=== PATIENT | male | born 1945 | race Caucasian/White ===

== ENCOUNTER 2018-05-26 03:30 | Emergency (ER) | payer MEDICARE, OTHER, SELFPAY ==
[2018-05-26 03:30] VITALS: BP 107/57; PULSE 76; RESP 18; TEMP 38.3; O2SAT 95; BMI 28.0
--- NOTE | 2018-05-26 03:50 | ED.LOWEXIN ---
HPI - Extremity Injury (Lower) General Chief Complaint: Extremity Injury, Lower Stated Complaint: Bleeding at dressing Time Seen by Provider: 05/26/18 03:49 Source: patient and EMS Mode of arrival: EMS Limitations: no limitations History of Present Illness HPI Narrative: Patient is a 72-year-old male who presents with left his knee bleeding. He had a total knee arthroplasty is 3 days ago he was discharged the 2 days ago. Yesterday he started his exercises. this evening he noticed that there was bleeding at the incision site and there was her very large blood clot which drip from the bandage. He does have some postoperative swelling. He is noted to have low-grade fever of 100.9. He denies knowing of any fever before this. He was feeling fine earlier. Related Data Home Medications Medication Instructions Recorded Confirmed [flaxseed oil] #0 05/05/16 ascorbic acid (vitamin C) 500 mg PO QDAY #0 05/05/16 cholecalciferol (vitamin D3) 1,000 unit PO QDAY #0 05/05/16 [Vitamin D3] ginkgo biloba 120 mg PO #0 05/05/16 multivitamin [Multiple Vitamins] 1 tab PO QDAY #0 05/05/16 omega 9-ufo-zrw-fish oil [Fish Oil] 1,000 mg PO #0 05/05/16 Allergies Allergy/AdvReac Type Severity Reaction Status Date / Time azithromycin [From ZITHROMAX] Allergy Unknown Verified 05/26/18 04:03 oxycodone [OXYCODONE] Allergy Unknown RASH Verified 05/26/18 04:03 Sulfa (Sulfonamide Allergy Unknown Verified 05/26/18 04:03 Antibiotics) [SULFA (SULFONAMIDE ANTIBIOTICS)] Review of Systems Review of Systems ROS Unobtainable: All systems reviewed & are unremarkable except as noted in HPI and below Constitutional Denies body ache(s), Denies chills and Reports fever(s) Eyes Denies change in vision, Denies eye discharge, Denies irritation and Denies loss of vision Cardiovascular Denies chest pain, Denies irregular heart rhythm, Denies lightheadedness, Denies palpitations, Denies dyspnea, Denies dyspnea on exertion and Denies orthopnea Respiratory Denies cough, Denies dyspnea, Denies dyspnea on exertion and Denies wheezing Gastrointestinal Gastrointestinal: Denies abdominal pain, Denies change in bowel habits, Denies diarrhea, Denies nausea and Denies vomiting Genitourinary Denies hematuria, Denies flank pain, Denies urinary incontinence and Denies urinary urgency Musculoskeletal Denies back pain, Denies muscle weakness, Denies numbness and Denies tingling Integumentary/Breasts Denies pruritus, Denies erythema, Denies rash and Denies wounds Neurologic Denies loss of vision, Denies numbness and Denies tingling Endocrine Denies palpitations Allergic/Immunologic Denies wheezing [facility] Medical History Hypertension (Chronic) Surgical History H/O total knee replacement (Acute) Social History Smoking Status: Never smoker Social History Smoking Status: Never smoker Exam Initial Vital Signs Initial Vital Signs: Vital Signs Temperature 100.9 F H 05/26/18 03:30 Pulse Rate 76 05/26/18 03:30 Respiratory Rate 18 05/26/18 03:30 Blood Pressure 107/57 L 05/26/18 03:30 Pulse Oximetry 95 05/26/18 03:30 GENERAL: Well-appearing, well-nourished and in no acute distress. HEENT: Head atraumatic,EOMI, pupils reactive CARDIOVASCULAR: Regular rate and rhythm without murmurs, rubs or gallops. RESPIRATORY: Breath sounds equal bilaterally, no wheezes rales or rhonchi. ABDOMEN: Soft, nontender. Normoactive bowel sounds all 4 quadrants. No guarding or rebound. EXTREMITIES: Normal range of motion, no clubbing or edema. Neurovascularly intact Left knee: Postoperative changes noted some swelling. No erythema. Incision site is clean and dry small and at the most distal end of the incision there is some oozing. Is easily controlled with pressure. NEUROLOGICAL: Alert and oriented x4.Normal gait and speech. Cranial nerves II through XII grossly intact. SKIN: Warm, dry, no laceration, no petechiae, no rashes or lesions. Course Orders Ordered: Discontinued Medications Sodium Chloride (Normal Saline 0.9%) 1,000 mls @ 1,000 mls/hr IV BOLUS ONE Stop: 05/26/18 04:51 Last Infusion: 05/26/18 05:00 Dose: 1,000 mls/hr Admin: 05/26/18 04:00 Dose: 1,000 mls/hr Vital Signs - 8 hr 05/26/18 03:30 Temperature 100.9 F H Pulse Rate 76 Respiratory Rate 18 Blood Pressure 107/57 L Pulse Oximetry 95 MDM - Extremity Injury (Lower) Lab Data Attestation: I reviewed the patient's lab results. Result diagrams: 05/26/18 04:00 05/26/18 04:00 Lab Results 05/26/18 05/26/18 05/26/18 Range/Units 04:00 04:00 04:00 WBC 7.6 (4.5-11.0) X10^3/uL RBC 3.74 L (4.5-5.9) X10^6/uL Hgb 12.5 L (13.5-17.5) g/dL Hct 36.7 L (41-53) % MCV 98.0 (80-100) fL MCH 33.4 (26-34) PG MCHC 34.1 (30-36) % RDW 13.1 (11.6-14.8) % Plt Count 123 L (150-400) X10^3/uL Neut % (Auto) 81.6 H (50-75) % Lymph % (Auto) 7.3 L (25-40) % [place] % (Auto) 10.6 (3-14) % Eos % (Auto) 0.3 L (2-4) % Baso % (Auto) 0.2 (0-2) % Neut # (Auto) 6200 (6402-6136) /uL Lymph # (Auto) 600 L (5608-7183) /uL [place] # (Auto) 800 (0-900) /uL Eos # (Auto) 0 (0-450) /uL Baso # (Auto) 0 (0-100) /uL Sodium 134 L (137-145) mmol/L Potassium 4.0 (3.4-5.1) mmol/L Chloride 98 (98-107) mmol/L Carbon Dioxide 30 (22-32) mmol/L BUN 14 (9-20) mg/dL Creatinine 0.90 (0.66-1.25) mg/dL Estimated GFR > 60.0 (>60) mL/min BUN/Creatinine Ratio 15.6 (6-22) Glucose 166 H (80-110) mg/dL Lactate 1.0 (0.7-2.1) mmol/L Calcium 8.5 (8.4-10.2) mg/dL Urine Color Urine Appearance Urine pH (4.5-8.0) Ur Specific [place] (1.000-1.035) Urine Protein (Negative) Urine Glucose (UA) (Negative) g/dL Urine Ketones (NEGATIVE) Urine Occult Blood (Negative) Urine Nitrate (Negative) Urine Bilirubin (NEGATIVE) Urine Urobilinogen (0.2) E.U./dL Ur Leukocyte Esterase (NEGATIVE) Urine RBC (0-5/HPF) Urine WBC (0-5/HPF) Ur Squamous Epith Cells Urine Bacteria (None) Urine Mucus (Negative) Ur Culture Indicated? 05/26/18 Range/Units 05:15 WBC (4.5-11.0) X10^3/uL RBC (4.5-5.9) X10^6/uL Hgb (13.5-17.5) g/dL Hct (41-53) % MCV (80-100) fL MCH (26-34) PG MCHC (30-36) % RDW (11.6-14.8) % Plt Count (150-400) X10^3/uL Neut % (Auto) (50-75) % Lymph % (Auto) (25-40) % [place] % (Auto) (3-14) % Eos % (Auto) (2-4) % Baso % (Auto) (0-2) % Neut # (Auto) (9790-1135) /uL Lymph # (Auto) (6002-4167) /uL [place] # (Auto) (0-900) /uL Eos # (Auto) (0-450) /uL Baso # (Auto) (0-100) /uL Sodium (137-145) mmol/L Potassium (3.4-5.1) mmol/L Chloride (98-107) mmol/L Carbon Dioxide (22-32) mmol/L BUN (9-20) mg/dL Creatinine (0.66-1.25) mg/dL Estimated GFR (>60) mL/min BUN/Creatinine Ratio (6-22) Glucose (80-110) mg/dL Lactate (0.7-2.1) mmol/L Calcium (8.4-10.2) mg/dL Urine Color Yaritza Urine Appearance Clear Urine pH 5.5 (4.5-8.0) Ur Specific [place] 1.025 (1.000-1.035) Urine Protein Trace H (Negative) Urine Glucose (UA) Negative (Negative) g/dL Urine Ketones Trace H (NEGATIVE) Urine Occult Blood Negative (Negative) Urine Nitrate Negative (Negative) Urine Bilirubin Negative (NEGATIVE) Urine Urobilinogen 0.2 (0.2) E.U./dL Ur Leukocyte Esterase Negative (NEGATIVE) Urine RBC 0-1/hpf (0-5/HPF) Urine WBC None seen (0-5/HPF) Ur Squamous Epith Cells 0-1 /hpf Urine Bacteria None seen (None) Urine Mucus 2+ H (Negative) Ur Culture Indicated? Cult not indicated MDM Narrative Medical decision making narrative: bleeding at incision it is oozing which is controlled his with pressure. Initially Surgicel was placed with gauze and Coban. Left for about 30 min new bandage as needed to be placed soaked gauze and Surgicel were removed. Bleeding started again. Coban was placed. This seemed to control bleeding. Coban is left in place. 5:40 a.m I spoke with the PA on-call Sumit, to [phone] of for doctor Apodaca. He has been made aware of fever and workup including negative DVT study, also aware of oozing at incision site. Discharge Plan Departure Patient Disposition: Home Clinical Impression: Postoperative bleeding from incision, Postoperative fever Discharge Date/Time: 05/26/18 07:14 Interventions: ED Discharge Assessment Last Done: 05/26/18 07:11 Instructions: DI for Post-Surgical Bleeding Activity Restrictions/Additional Instructions: *You have been diagnosed with postoperative fever and incisional bleeding *What to do: Keep Coban in pressure on site of bleeding for the next few hours. He may remove the Coban but do not remove the dressing. If the bleeding should start again apply pressure and hold for 30 min at a time if bleeding is not stopping then return to ED. At this time no indication for antibiotics for fever. It needs to be closely monitored with all your surgeon. No indication of blood clot and blood work is reassuring. *Continue to take medications as directed *Follow up with your primary care provider in 2-3 days, call your surgeon today to schedule appointment. PA curator of collections is aware *Return to ER if you should have bleeding that is not controlled with pressure, persistent fever, increasing redness or any new, worsening or concerning symptoms Prescriptions: No Action multivitamin [Multiple Vitamins] 1 EACH tablet 1 tab PO QDAY Qty: 0 RF: 0 ginkgo biloba 120 MG tablet 120 mg PO Qty: 0 RF: 0 omega 9-yax-tyb-fish oil [Fish Oil] 1,000 MG capsule 1,000 mg PO Qty: 0 RF: 0 [flaxseed oil] Qty: 0 RF: 0 ascorbic acid (vitamin C) 500 MG tablet 500 mg PO QDAY Qty: 0 RF: 0 cholecalciferol (vitamin D3) [Vitamin D3] 1,000 UNIT tablet 1,000 unit PO QDAY Qty: 0 RF: 0
--- NOTE | 2018-05-26 03:52 | DI.US.S_ITS ---
PROCEDURE: US PERIPH VENOUS LOW EXTREM LT INDICATIONS: EDEMA 4 DAYS POST LEFT KNEEE REPLACEMENT TECHNIQUE: Real-time imaging, as well as color and pulse Doppler interrogation, were performed of the lower extremity deep veins from the inguinal ligament to the popliteal fossa. COMPARISON: None. FINDINGS: The deep veins are normally compressible, and free of intraluminal thrombus. Color and pulse Doppler demonstrate normal phasic intraluminal flow. There is normal augmentation response to distal compression maneuver. Calf veins were not evaluated. IMPRESSION: No evidence of deep vein thrombosis involving the left lower extremity. Dictated by: Catrachita Gibson MD, PhD on 05/26/2018 at 7:19 Approved by: Catrachita Gibson MD, PhD on 05/26/2018 at 7:20
[2018-05-26] MEDS: SODIUM CHLORIDE 0.9% 1,000 ML 1000 ML IV (04:00)
--- NOTE | 2018-05-26 04:00 | PC.NURSE ---
Pt s/p left knee surgery on 05/23/17, states went to bathroom and knee bleeding beyond aquacell bandage applied. Bandage removed, surgical site bleeding at base of incision, Dr in room applied surgicel and coban to knee temporarily then replaced with new aquacell bandage to knee with bleeding controlled. Pt denies new or increasing pain to site. States was doing exercises earlier in day and going up and down stairs in 3 story home.
[2018-05-26 04:21] LABS: Add Manual Diff / Slide Review NO; Basophils Absolute Auto 0 /uL (0-100); Basophils Percent Auto 0.2 % (0-2); Eosinophils Absolute Auto 0 /uL (0-450); Eosinophils Percent Auto 0.3 % (2-4); Hematocrit 36.7 % (41-53); Hemoglobin 12.5 g/dL (13.5-17.5); Lymphocytes Absolute Auto 600 /uL (1100-4500); Lymphocytes Percent Auto 7.3 % (25-40); Mean Corpuscular HGB Conc 34.1 % (30-36); Mean Corpuscular Hemoglobin 33.4 PG (26-34); Monocytes Absolute Auto 800 /uL (0-900); Monocytes Percent Auto 10.6 % (3-14); Neutrophils Absolute Auto 6200 /uL (1500-7000); Neutrophils Percent Auto 81.6 % (50-75); Platelet Count 123 X10^3/uL (150-400); Red Blood Cell Count 3.74 X10^6/uL (4.5-5.9); Red Cell Distribution Width 13.1 % (11.6-14.8); White Blood Cell Count 7.6 X10^3/uL (4.5-11.0)
[2018-05-26 04:25] LABS: BUN Creatinine Ratio 15.6 (6-22); Blood Urea Nitrogen 14 mg/dL (9-20); Calcium 8.5 mg/dL (8.4-10.2); Carbon Dioxide 30 mmol/L (22-32); Chloride 98 mmol/L (98-107); Estimated Glomerular Filt Rate > 60.0 mL/min (>60); Glucose 166 mg/dL (80-110); HEMOLYSIS < 15 (0-50); Sodium 134 mmol/L (137-145)
--- NOTE | 2018-05-26 04:54 | ED_ITS ---
HPI - Extremity Injury (Lower) General Chief Complaint: Extremity Injury, Lower Stated Complaint: Bleeding at dressing Time Seen by Provider: 05/26/18 03:49 Source: patient and EMS Mode of arrival: EMS Limitations: no limitations History of Present Illness HPI Narrative: Patient is a 72-year-old male who presents with left his knee bleeding. He had a total knee arthroplasty is 3 days ago he was discharged the 2 days ago. Yesterday he started his exercises. this evening he noticed that there was bleeding at the incision site and there was her very large blood clot which drip from the bandage. He does have some postoperative swelling. He is noted to have low-grade fever of 100.9. He denies knowing of any fever before this. He was feeling fine earlier. Related Data Home Medications Medication Instructions Recorded Confirmed [flaxseed oil] #0 05/05/16 ascorbic acid (vitamin C) 500 mg PO QDAY #0 05/05/16 cholecalciferol (vitamin D3) 1,000 unit PO QDAY #0 05/05/16 [Vitamin D3] ginkgo biloba 120 mg PO #0 05/05/16 multivitamin [Multiple Vitamins] 1 tab PO QDAY #0 05/05/16 omega 5-esa-ifi-fish oil [Fish Oil] 1,000 mg PO #0 05/05/16 Allergies Allergy/AdvReac Type Severity Reaction Status Date / Time azithromycin [From ZITHROMAX] Allergy Unknown Verified 05/26/18 04:03 oxycodone [OXYCODONE] Allergy Unknown RASH Verified 05/26/18 04:03 Sulfa (Sulfonamide Allergy Unknown Verified 05/26/18 04:03 Antibiotics) [SULFA (SULFONAMIDE ANTIBIOTICS)] Review of Systems Review of Systems ROS Unobtainable: All systems reviewed & are unremarkable except as noted in HPI and below Constitutional Denies body ache(s), Denies chills and Reports fever(s) Eyes Denies change in vision, Denies eye discharge, Denies irritation and Denies loss of vision Cardiovascular Denies chest pain, Denies irregular heart rhythm, Denies lightheadedness, Denies palpitations, Denies dyspnea, Denies dyspnea on exertion and Denies orthopnea Respiratory Denies cough, Denies dyspnea, Denies dyspnea on exertion and Denies wheezing Gastrointestinal Gastrointestinal: Denies abdominal pain, Denies change in bowel habits, Denies diarrhea, Denies nausea and Denies vomiting Genitourinary Denies hematuria, Denies flank pain, Denies urinary incontinence and Denies urinary urgency Musculoskeletal Denies back pain, Denies muscle weakness, Denies numbness and Denies tingling Integumentary/Breasts Denies pruritus, Denies erythema, Denies rash and Denies wounds Neurologic Denies loss of vision, Denies numbness and Denies tingling Endocrine Denies palpitations Allergic/Immunologic Denies wheezing [facility] Medical History Hypertension (Chronic) Surgical History H/O total knee replacement (Acute) Social History Smoking Status: Never smoker Social History Smoking Status: Never smoker Exam Initial Vital Signs Initial Vital Signs: Vital Signs Temperature 100.9 F H 05/26/18 03:30 Pulse Rate 76 05/26/18 03:30 Respiratory Rate 18 05/26/18 03:30 Blood Pressure 107/57 L 05/26/18 03:30 Pulse Oximetry 95 05/26/18 03:30 GENERAL: Well-appearing, well-nourished and in no acute distress. HEENT: Head atraumatic,EOMI, pupils reactive CARDIOVASCULAR: Regular rate and rhythm without murmurs, rubs or gallops. RESPIRATORY: Breath sounds equal bilaterally, no wheezes rales or rhonchi. ABDOMEN: Soft, nontender. Normoactive bowel sounds all 4 quadrants. No guarding or rebound. EXTREMITIES: Normal range of motion, no clubbing or edema. Neurovascularly intact Left knee: Postoperative changes noted some swelling. No erythema. Incision site is clean and dry small and at the most distal end of the incision there is some oozing. Is easily controlled with pressure. NEUROLOGICAL: Alert and oriented x4.Normal gait and speech. Cranial nerves II through XII grossly intact. SKIN: Warm, dry, no laceration, no petechiae, no rashes or lesions. Course Orders Ordered: Discontinued Medications Sodium Chloride (Normal Saline 0.9%) 1,000 mls @ 1,000 mls/hr IV BOLUS ONE Stop: 05/26/18 04:51 Last Infusion: 05/26/18 05:00 Dose: 1,000 mls/hr Admin: 05/26/18 04:00 Dose: 1,000 mls/hr Vital Signs - 8 hr 05/26/18 03:30 Temperature 100.9 F H Pulse Rate 76 Respiratory Rate 18 Blood Pressure 107/57 L Pulse Oximetry 95 MDM - Extremity Injury (Lower) Lab Data Attestation: I reviewed the patient's lab results. Result diagrams: 05/26/18 04:00 05/26/18 04:00 Lab Results 05/26/18 05/26/18 05/26/18 Range/Units 04:00 04:00 04:00 WBC 7.6 (4.5-11.0) X10^3/uL RBC 3.74 L (4.5-5.9) X10^6/uL Hgb 12.5 L (13.5-17.5) g/dL Hct 36.7 L (41-53) % MCV 98.0 (80-100) fL MCH 33.4 (26-34) PG MCHC 34.1 (30-36) % RDW 13.1 (11.6-14.8) % Plt Count 123 L (150-400) X10^3/uL Neut % (Auto) 81.6 H (50-75) % Lymph % (Auto) 7.3 L (25-40) % [place] % (Auto) 10.6 (3-14) % Eos % (Auto) 0.3 L (2-4) % Baso % (Auto) 0.2 (0-2) % Neut # (Auto) 6200 (2367-9782) /uL Lymph # (Auto) 600 L (6843-9641) /uL [place] # (Auto) 800 (0-900) /uL Eos # (Auto) 0 (0-450) /uL Baso # (Auto) 0 (0-100) /uL Sodium 134 L (137-145) mmol/L Potassium 4.0 (3.4-5.1) mmol/L Chloride 98 (98-107) mmol/L Carbon Dioxide 30 (22-32) mmol/L BUN 14 (9-20) mg/dL Creatinine 0.90 (0.66-1.25) mg/dL Estimated GFR > 60.0 (>60) mL/min BUN/Creatinine Ratio 15.6 (6-22) Glucose 166 H (80-110) mg/dL Lactate 1.0 (0.7-2.1) mmol/L Calcium 8.5 (8.4-10.2) mg/dL Urine Color Urine Appearance Urine pH (4.5-8.0) Ur Specific [place] (1.000-1.035) Urine Protein (Negative) Urine Glucose (UA) (Negative) g/dL Urine Ketones (NEGATIVE) Urine Occult Blood (Negative) Urine Nitrate (Negative) Urine Bilirubin (NEGATIVE) Urine Urobilinogen (0.2) E.U./dL Ur Leukocyte Esterase (NEGATIVE) Urine RBC (0-5/HPF) Urine WBC (0-5/HPF) Ur Squamous Epith Cells Urine Bacteria (None) Urine Mucus (Negative) Ur Culture Indicated? 05/26/18 Range/Units 05:15 WBC (4.5-11.0) X10^3/uL RBC (4.5-5.9) X10^6/uL Hgb (13.5-17.5) g/dL Hct (41-53) % MCV (80-100) fL MCH (26-34) PG MCHC (30-36) % RDW (11.6-14.8) % Plt Count (150-400) X10^3/uL Neut % (Auto) (50-75) % Lymph % (Auto) (25-40) % [place] % (Auto) (3-14) % Eos % (Auto) (2-4) % Baso % (Auto) (0-2) % Neut # (Auto) (4872-4113) /uL Lymph # (Auto) (3865-6146) /uL [place] # (Auto) (0-900) /uL Eos # (Auto) (0-450) /uL Baso # (Auto) (0-100) /uL Sodium (137-145) mmol/L Potassium (3.4-5.1) mmol/L Chloride (98-107) mmol/L Carbon Dioxide (22-32) mmol/L BUN (9-20) mg/dL Creatinine (0.66-1.25) mg/dL Estimated GFR (>60) mL/min BUN/Creatinine Ratio (6-22) Glucose (80-110) mg/dL Lactate (0.7-2.1) mmol/L Calcium (8.4-10.2) mg/dL Urine Color Yaritza Urine Appearance Clear Urine pH 5.5 (4.5-8.0) Ur Specific [place] 1.025 (1.000-1.035) Urine Protein Trace H (Negative) Urine Glucose (UA) Negative (Negative) g/dL Urine Ketones Trace H (NEGATIVE) Urine Occult Blood Negative (Negative) Urine Nitrate Negative (Negative) Urine Bilirubin Negative (NEGATIVE) Urine Urobilinogen 0.2 (0.2) E.U./dL Ur Leukocyte Esterase Negative (NEGATIVE) Urine RBC 0-1/hpf (0-5/HPF) Urine WBC None seen (0-5/HPF) Ur Squamous Epith Cells 0-1 /hpf Urine Bacteria None seen (None) Urine Mucus 2+ H (Negative) Ur Culture Indicated? Cult not indicated MDM Narrative Medical decision making narrative: bleeding at incision it is oozing which is controlled his with pressure. Initially Surgicel was placed with gauze and Coban. Left for about 30 min new bandage as needed to be placed soaked gauze and Surgicel were removed. Bleeding started again. Coban was placed. This seemed to control bleeding. Coban is left in place. 5:40 a.m I spoke with the PA on-call Sumit to [phone] of for doctor Apodaca. He has been made aware of fever and workup including negative DVT study, also aware of oozing at incision site. Discharge Plan Departure Patient Disposition: Home Clinical Impression: Postoperative bleeding from incision, Postoperative fever Discharge Date/Time: 05/26/18 07:14 Interventions: ED Discharge Assessment Last Done: 05/26/18 07:11 Instructions: DI for Post-Surgical Bleeding Activity Restrictions/Additional Instructions: *You have been diagnosed with postoperative fever and incisional bleeding *What to do: Keep Coban in pressure on site of bleeding for the next few hours. He may remove the Coban but do not remove the dressing. If the bleeding should start again apply pressure and hold for 30 min at a time if bleeding is not sto pping then return to ED. At this time no indication for antibiotics for fever. It needs to be closely monitored with all your surgeon. No indication of blood clot and blood work is reassuring. *Continue to take medications as directed *Follow up with your primary care provider in 2-3 days, call your surgeon today to schedule appointment. PA pedodontist is aware *Return to ER if you should have bleeding that is not controlled with pressure, persistent fever, increasing redness or any new, worsening or concerning symptoms Prescriptions: No Action multivitamin [Multiple Vitamins] 1 EACH tablet 1 tab PO QDAY Qty: 0 RF: 0 ginkgo biloba 120 MG tablet 120 mg PO Qty: 0 RF: 0 omega 8-mbg-nzk-fish oil [Fish Oil] 1,000 MG capsule 1,000 mg PO Qty: 0 RF: 0 [flaxseed oil] Qty: 0 RF: 0 ascorbic acid (vitamin C) 500 MG tablet 500 mg PO QDAY Qty: 0 RF: 0 cholecalciferol (vitamin D3) [Vitamin D3] 1,000 UNIT tablet 1,000 unit PO QDAY Qty: 0 RF: 0
[2018-05-26 05:58] LABS: Bacteria Urine None Seen; WBC Urine None Seen (0-5/HPF)
--- NOTE | 2018-05-26 07:00 | PC.NURSE ---
and RN updated pt on wait for urine still pending in lab due to extended wait time for results per lab to come back to ER. Dr Hartman spoke with computer laboratory technician to get a status of pending urine and gave pt option to DC and pt would be notified of results in which pt declined and chose to wait for urine results prior to DC.
[2018-05-26 07:03] LABS: Appearance Urine UA CLEAR; Bilirubin Urine UA NEGATIVE (NEGATIVE); Glucose Urine UA NEGATIVE (Negative); Ketones Urine UA TRACE (NEGATIVE); Leukocyte Esterase Urine UA NEGATIVE (NEGATIVE); Nitrite Urine UA NEGATIVE (Negative); Occult Blood Urine UA NEGATIVE (Negative); Protein Urine UA TRACE (Negative); Specific Gravity Urine UA 1.025 (1.000-1.035); Urobilinogen Urine UA 0.2 E.U./dL (0.2); pH Urine UA 5.5 (4.5-8.0)
[2018-05-26 07:05] LABS: Color Urine UA AMBER
[2018-05-26 07:11] VITALS: BP 112/66; PULSE 72; RESP 14; TEMP 38.1; O2SAT 95
[2018-05-26 07:11] LABS: Culture Indicated Urine Cult Not Indicated; Mucus Urine 2+ (Negative); RBC Urine 0-1/HPF (0-5/HPF); Squamous Epithelial Cell Urine 0-1 /HPF
== END 2018-05-26 07:14 | disposition home or self-care (01) ==
PROVIDERS: Emergency Provider Emergency Medicine
DX: T14.8XXA Other injury of unspecified body region, initial encounter (principal); R50.82 Postprocedural fever
CPT/HCPCS: 36415; 36591; 80048; 81001; 83605; 85025; 87040; 93971; 96360; 99283; 99284

== ENCOUNTER 2019-02-15 04:03 | Emergency (ER) | payer MEDICARE, OTHER, SELFPAY ==
[2019-02-15 04:17] VITALS: BP 177/85; PULSE 80; RESP 20; O2SAT 99
--- NOTE | 2019-02-15 04:24 | DI.CT.S_ITS ---
PROCEDURE: CT HEAD/BRAIN WO CON INDICATIONS: Hypertension, numbness of left arm and left leg TECHNIQUE: Noncontrast 4.5 mm thick angled axial sections acquired from the foramen magnum to the vertex, with coronal and sagittal reformats. For radiation dose reduction, the following was used: automated exposure control, adjustment of mA and/or kV according to patient size. COMPARISON: None. FINDINGS: Image quality: Excellent. CSF spaces: Basal cisterns are patent. No extra-axial fluid collections. The ventricles are symmetric in size and shape. Brain: No intracranial bleeds or masses. There is cerebral volume loss for age, with resultant ventricular and sulcal prominence. There are periventricular and deep white matter chronic small vessel ischemic changes. There is intracranial internal carotid artery atherosclerosis. Skull and face: Calvarium and visualized facial bones appear intact, without suspicious lesions. Sinuses: Mucosal thickening noted in the right sphenoid sinus. And the visualized right maxillary sinus. mastoids are clear. IMPRESSION: No acute intracranial disease process. Dictated by: Catrachita Gibson MD, PhD on 02/15/2019 at 7:31 Approved by: Catrachita Gibson MD, PhD on 02/15/2019 at 7:33
--- NOTE | 2019-02-15 04:25 | DI.RAD.S_ITS ---
PROCEDURE: XR CHEST 1V INDICATIONS: chest pain, hypertension TECHNIQUE: One view of the chest was acquired. COMPARISON: Single view chest radiograph 03/27/17, [facility]. FINDINGS: Surgical changes and devices: None. Lungs and pleura: There is bilateral prominence of the pulmonary vasculature. There are increased bilateral predominantly perihilar linear opacities. There are also hazy and linear opacities of the medial right lung base. No pleural effusions or pneumothorax. Mediastinum: Mediastinal contours appear normal. Heart size is normal. Bones and chest wall: No suspicious bony lesions. Overlying soft tissues appear unremarkable. IMPRESSION: 1. Increased bilateral predominantly perihilar linear opacities most consistent with atelectasis and prominent pulmonary vasculature, versus findings of early minimal pulmonary edema. 2. Medial right lung base opacities likely represent atelectasis, although aspiration or pneumonia could appear similar. Consider followup chest radiographs if there is continued clinical concern. Dictated by: Venu Nur M.D. on 02/15/2019 at 9:12 Approved by: Venu Nur M.D. on 02/15/2019 at 9:21
--- NOTE | 2019-02-15 04:26 | ED.GENADULT ---
HPI - General Adult General Chief complaint: Hypertension Stated complaint: woke w/left arm numbness/don't feel right bp high Time Seen by Provider: 02/15/19 04:24 Source: patient Mode of arrival: Ambulatory Limitations: no limitations History of Present Illness HPI narrative: 73-year-old male nonsmoker with history of hypertension and hyperlipidemia awoke feeling ?funny? and checked his blood pressure noted to be elevated, he has checked it a few times and at most noted to be in the 200s over about 110. He denies any headache or blurred vision. He has had no difficulty with speech nor chest pain or shortness of breath. He does complain of some tingling in atypical feeling in his left arm and mentions that his left knee feels weird also. He then clarifies and states that his left arm has been having symptoms like this since the 1970s He denies missing any medications nor has he had any alterations in the dosages. He receives his primary care at the [facility] in [place]. He denies any provocation or palliation of the numbness and tingling in his left arm. He states that exertion does not change things nor does moving his arm. He went to bed feeling normal at 1:00 a.m. and woke up at 2:30 a.m. with these symptoms Onset (ago): hour(s) Location: left, upper extremity and lower extremity Radiation: non-radiation Relieving factors: none Exacerbating factors: none Treatments prior to arrival: none Related Data Home Medications Medication Instructions Recorded Confirmed [flaxseed oil] #0 05/05/16 ascorbic acid (vitamin C) 500 mg PO QDAY #0 05/05/16 cholecalciferol (vitamin D3) 1,000 unit PO QDAY #0 05/05/16 [Vitamin D3] ginkgo biloba 120 mg PO #0 05/05/16 multivitamin [Multiple Vitamins] 1 tab PO QDAY #0 05/05/16 omega 6-lat-qaa-fish oil [Fish Oil] 1,000 mg PO #0 05/05/16 Allergies Allergy/AdvReac Type Severity Reaction Status Date / Time azithromycin [From ZITHROMAX] Allergy Unknown Verified 05/26/18 04:03 oxycodone [OXYCODONE] Allergy Unknown RASH Verified 05/26/18 04:03 Sulfa (Sulfonamide Allergy Unknown Verified 05/26/18 04:03 Antibiotics) [SULFA (SULFONAMIDE ANTIBIOTICS)] Review of Systems Constitutional Constitutional: Denies chills, Denies fatigue, Denies fever(s), Denies frequent falls, Denies lethargy and Denies weakness Eyes Eyes: Denies change in vision, Denies eye discharge, Denies irritation and Denies loss of vision ENT Ears, Nose, Mouth, and Throat: Denies change in voice, Denies dizziness, Denies neck pain, Denies sore throat and Denies throat swelling Cardiovascular Cardiovascular: Denies chest pain, Denies irregular heart rhythm, Denies lightheadedness, Denies palpitations, Denies dyspnea, Denies dyspnea on exertion and Denies orthopnea Respiratory Respiratory: Denies cough, Denies dyspnea, Denies dyspnea on exertion and Denies wheezing Gastrointestinal Gastrointestinal: Denies abdominal pain, Denies change in bowel habits, Denies diarrhea, Denies nausea and Denies vomiting Genitourinary Genitourinary: Denies hematuria, Denies flank pain, Denies urinary incontinence and Denies urinary urgency Musculoskeletal Musculoskeletal: Denies back pain, Denies muscle weakness, Denies neck pain, Denies numbness and Reports tingling Integumentary/Breasts Skin/Breast: Denies pruritus, Denies erythema, Denies rash and Denies wounds Neurologic Neurologic: Denies behavioral changes, Denies confusion, Denies dizziness, Denies frequent falls, Denies loss of vision, Denies numbness, Reports tingling and Denies weakness Psychiatric Psychiatric: Denies anxiety, Denies behavioral changes, Denies confusion, Denies depression, Denies homicidal ideation and Denies suicidal ideation Endocrine Endocrine: Denies fatigue, Denies flushing and Denies palpitations Hematologic/Lymphatic Hematologic/Lymphatic: Denies easy bruising Allergic/Immunologic Allergic/Immunologic: Denies urticaria, Denies throat swelling and Denies wheezing Patient History Medical History Hypertension (Chronic) Surgical History H/O total knee replacement (Acute) Social History Smoking Status: Never smoker alcohol intake frequency: a few times a week Substance Use Type: marijuana Exam Narrative Exam Narrative: GENERAL: [73] year old patient appears stated age. Well-nourished, well-developed patient, in mild distress. HEAD: Atraumatic. Normocephalic. EYES: Pupils equal round and reactive. Extraocular motions intact. No scleral icterus. No injection or drainage. ENT: Nose without bleeding, purulent drainage. Throat without erythema, tonsillar hypertrophy or exudate. Airway patent. NECK: Trachea midline. Non tender CARDIOVASCULAR: Regular rate and rhythm without murmurs, gallops, or rubs. RESPIRATORY: Clear to auscultation. Breath sounds equal bilaterally. No wheezes, rales, or rhonchi. GASTROINTESTINAL: Abdomen soft, non-tender, nondistended. EXTREMITIES: No edema or joint tenderness. BACK: Nontender without deformity or crepitance. No flank tenderness. NEURO: AOx3. SKIN: No rash or erythema of visible areas Initial Vital Signs Initial Vital Signs: Vital Signs Pulse Rate 80 02/15/19 04:17 Respiratory Rate 20 02/15/19 04:17 Blood Pressure 177/85 H 02/15/19 04:17 Pulse Oximetry 99 02/15/19 04:17 Course Orders Ordered: ED Orders 02/15/19 EKG-12 Lead Stat 02/15/19 04:08 B Type Natriuretic Peptide Stat Complete Blood Count AUTO DIFF Stat Comprehensive Metabolic Panel Stat Lipase Stat Troponin & CK Cardiac Panel Stat 02/15/19 04:24 CT head/brain wo con Stat 02/15/19 04:25 XR chest 1V Stat Discontinued Medications Aspirin (Aspirin Chew) 324 mg PO NOW ONE Stop: 02/15/19 04:25 Last Admin: 02/15/19 04:42 Dose: 324 mg Documented by: JACQUIE Sodium Chloride (Normal Saline 0.9%) 1,000 mls @ 150 mls/hr IV CONT JACKELINE Last Infusion: 02/15/19 05:55 Dose: 150 mls/hr Documented by: Admin: 02/15/19 04:42 Dose: 150 mls/hr Documented by: JACQUIE Vital Signs Vital signs: Vital Signs - 8 hr 02/15/19 04:17 02/15/19 04:52 02/15/19 05:07 Temperature 97.5 F L Pulse Rate 80 78 Respiratory Rate 20 18 Blood Pressure 177/85 H Blood Pressure [Left Arm] 159/80 H Pulse Oximetry 99 99 02/15/19 05:32 02/15/19 05:57 Temperature Pulse Rate 80 76 Respiratory Rate 22 18 Blood Pressure 174/80 H Blood Pressure [Left Arm] 176/82 H Pulse Oximetry 97 98 Medical Decision Making Lab Data Result diagrams: 02/15/19 04:08 02/15/19 04:08 Labs: Lab Results 02/15/19 02/15/19 02/15/19 Range/Units 04:08 04:08 04:08 WBC 4.7 (4.5-11.0) X10^3/uL RBC 4.48 L (4.5-5.9) X10^6/uL Hgb 14.3 (13.5-17.5) g/dL Hct 41.9 (41-53) % MCV 93.6 (80-100) fL MCH 32.0 (26-34) PG MCHC 34.2 (30-36) % RDW 15.1 H (11.6-14.8) % Plt Count 163 (150-400) X10^3/uL Neut % (Auto) 47.5 L (50-75) % Lymph % (Auto) 35.9 (25-40) % [place] % (Auto) 14.2 H (3-14) % Eos % (Auto) 1.8 L (2-4) % Baso % (Auto) 0.6 (0-2) % Neut # (Auto) 2200 (3115-6431) /uL Lymph # (Auto) 1700 (0140-5129) /uL [place] # (Auto) 700 (0-900) /uL Eos # (Auto) 100 (0-450) /uL Baso # (Auto) 0 (0-100) /uL Sodium 139 (137-145) mmol/L Potassium 4.0 (3.4-5.1) mmol/L Chloride 102 (98-107) mmol/L Carbon Dioxide 29 (22-32) mmol/L BUN 19 (9-20) mg/dL Creatinine 0.90 (0.66-1.25) mg/dL Estimated GFR > 60.0 (>60) mL/min BUN/Creatinine Ratio 21.1 (6-22) Glucose 114 H (80-110) mg/dL Calcium 9.5 (8.4-10.2) mg/dL Total Bilirubin 0.5 (0.2-1.3) mg/dL AST 48 (17-59) IU/L ALT 26 (21-72) IU/L Alkaline Phosphatase 62 (38-126) U/L Total Creatine Kinase 83 (55-170) U/L CK-MB (CK-2) TNP CK-MB (CK-2) Rel Index TNP Troponin I < 0.012 (0.01-0.034) ng/mL B-Natriuretic Peptide < 100 (<100) Total Protein 7.5 (6.3-8.2) g/dL Albumin 4.5 (3.5-5.0) g/dL Globulin 3.0 (1.7-4.1) g/dL Albumin/Globulin Ratio 1.5 (1.0-2.8) Lipase 123 (23-300) U/L Imaging Data Chest x-ray: Attestation: I personally reviewed and interpreted this imaging study as follows: My impression: NAP CT scan - head: Radiologist's impression: No acute intracranial abnormalities ECG Data Attestation: I personally reviewed and interpreted this ECG as follows: Prior ECG tracings: not available for review Interpretation: EKG is normal sinus rhythm rate [71 ] and free of any signs of ischemia or ectopy. No ST segmental elevation or depression. No T wave inversions MDM Narrative Medical decision making narrative: Multiple etiologies for patient's symptoms considered including: [Stroke but thought less likely given lack of supporting symptoms. Hypertensive emergency, thought less likely given lack of lab abnormalities or physical exam findings consistent with blood pressures.] Patient's symptoms improved or duration of stay with above-stated therapies. Findings and discharge diagnosis discussed with patient/family followed by verbalization of understanding Return precautions discussed with patient/family whom verbalize understanding. Discharge Plan Departure Patient Disposition: Home Clinical Impression: Chronic hypertension Discharge Date/Time: 02/15/19 05:58 Instructions: DI for High Blood Pressure Activity Restrictions/Additional Instructions: *You have been diagnosed with [hypertension] *What to do: *Take medications as directed: Continue your regular medications and add aspirin 81 mg daily *Follow up with your primary care provider in 2-3 days, call for an appointment. Let them know you were seen in the Emergency Department and that we ask that you be seen in follow up *Return to ER if you should have any new, worsening or concerning symptoms Prescriptions: No Action multivitamin [Multiple Vitamins] 1 EACH tablet 1 tab PO QDAY Qty: 0 RF: 0 ginkgo biloba 120 MG tablet 120 mg PO Qty: 0 RF: 0 omega 5-wmc-rcp-fish oil [Fish Oil] 1,000 MG capsule 1,000 mg PO Qty: 0 RF: 0 [flaxseed oil] Qty: 0 RF: 0 ascorbic acid (vitamin C) 500 MG tablet 500 mg PO QDAY Qty: 0 RF: 0 cholecalciferol (vitamin D3) [Vitamin D3] 1,000 UNIT tablet 1,000 unit PO QDAY Qty: 0 RF: 0
[2019-02-15 04:34] LABS: Add Manual Diff / Slide Review NO; Basophils Absolute Auto 0 /uL (0-100); Basophils Percent Auto 0.6 % (0-2); Eosinophils Absolute Auto 100 /uL (0-450); Eosinophils Percent Auto 1.8 % (2-4); Hematocrit 41.9 % (41-53); Hemoglobin 14.3 g/dL (13.5-17.5); Lymphocytes Absolute Auto 1700 /uL (1100-4500); Lymphocytes Percent Auto 35.9 % (25-40); Mean Corpuscular HGB Conc 34.2 % (30-36); Mean Corpuscular Volume 93.6 fL (80-100); Monocytes Absolute Auto 700 /uL (0-900); Monocytes Percent Auto 14.2 % (3-14); Neutrophils Absolute Auto 2200 /uL (1500-7000); Neutrophils Percent Auto 47.5 % (50-75); Platelet Count 163 X10^3/uL (150-400); Red Blood Cell Count 4.48 X10^6/uL (4.5-5.9); Red Cell Distribution Width 15.1 % (11.6-14.8); White Blood Cell Count 4.7 X10^3/uL (4.5-11.0)
[2019-02-15 04:37] LABS: Alanine Aminotransferase 26 IU/L (21-72); Albumin 4.5 g/dL (3.5-5.0); Albumin Globulin Ratio 1.5 (1.0-2.8); Alkaline Phosphatase 62 U/L (38-126); Aspartate Aminotransferase 48 IU/L (17-59); BUN Creatinine Ratio 21.1 (6-22); Bilirubin Total 0.5 mg/dL (0.2-1.3); Blood Urea Nitrogen 19 mg/dL (9-20); Calcium 9.5 mg/dL (8.4-10.2); Carbon Dioxide 29 mmol/L (22-32); Chloride 102 mmol/L (98-107); Creatine Kinase 83 U/L (55-170); Estimated Glomerular Filt Rate > 60.0 mL/min (>60); Glucose 114 mg/dL (80-110); HEMOLYSIS 39 (0-50); Lipase 123 U/L (23-300); Sodium 139 mmol/L (137-145); Total Protein 7.5 g/dL (6.3-8.2)
[2019-02-15] MEDS: SODIUM CHLORIDE 0.9% 1,000 ML 150 ML IV (04:42)
[2019-02-15] MEDS: ASPIRIN 81 MG CHEW TAB 324 MG PO (04:42)
[2019-02-15 04:49] LABS: Troponin I < 0.012 ng/mL (0.01-0.034)
[2019-02-15 04:52] VITALS: BP 159/80; PULSE 78; RESP 18; O2SAT 99
[2019-02-15 04:56] LABS: B Type Natriuretic Peptide < 100 (<100)
--- NOTE | 2019-02-15 05:04 | PC.NURSE ---
He has no pain,no sob,the right arm numb sensation is not new he told me.He said he has had it for years.
[2019-02-15 05:07] VITALS: TEMP 36.4
[2019-02-15 05:32] VITALS: BP 176/82; PULSE 80; RESP 22; O2SAT 97
[2019-02-15 05:57] VITALS: BP 174/80; PULSE 76; RESP 18; O2SAT 98
== END 2019-02-15 05:58 | disposition home or self-care (01) ==
PROVIDERS: Emergency Provider Emergency Medicine
DX: I10 Essential (primary) hypertension (principal); R20.0 Anesthesia of skin
CPT/HCPCS: 36415; 70450; 71045; 80053; 82550; 83690; 83880; 84484; 85025; 93005; 96360; 99283; 99285

== ENCOUNTER 2020-04-15 15:07 | Emergency (ER) | payer MEDICARE, OTHER, SELFPAY ==
[2020-04-15 15:09] VITALS: BP 162/86; PULSE 73; RESP 20; TEMP 36.8; O2SAT 98
--- NOTE | 2020-04-15 15:17 | DI.US.S_ITS ---
PROCEDURE: US PERIP VENOUS LOW EXTREM LT INDICATIONS: PAIN, SWELLING, RECENT SURGERY. PLEASE GO BELOW KNEE TECHNIQUE: Real-time imaging, as well as color and pulse Doppler interrogation, were performed of the lower extremity deep veins from the inguinal ligament to the popliteal fossa. COMPARISON: [facility], , [facility] VENOUS LOW EXTREM LT, 05/26/2018, 4:48. FINDINGS: The common femoral, femoral and popliteal veins are normally compressible, and free of intraluminal thrombus. Color and pulse Doppler demonstrate normal phasic intraluminal flow. There is normal augmentation response to distal compression maneuver. IMPRESSION: No DVT found left lower extremity. Dictated by: Manuel Allison M.D. on 04/15/2020 at 16:17 Approved by: Manuel Allison M.D. on 04/15/2020 at 16:18
--- NOTE | 2020-04-16 10:10 | ED.EXTPRO ---
HPI - Extremity Problem General Chief complaint: Extremity Problem,Nontraumatic Stated complaint: Suspected Blood Clot, Lt Foot, Post Op 03/25 Time Seen by Provider: 04/15/20 15:11 Source: patient Mode of arrival: Ambulatory Limitations: no limitations History of Present Illness HPI Narrative: 74-year-old male nonsmoker with benign medical history presents with his in the chief complaint of some swelling in the toes of his left foot in the recent aftermath of an orthopedic surgery performed in [place]. He does have a history of DVTs and was sent here by his orthopedist for evaluation of a possible clot. He has been on antibiotics for possible wound infection or cellulitis also. He denies systemic findings such as fever chills nor nausea or vomiting. He denies any exposure to persons known with COVID. He is otherwise well and free of complaint. He denies any significant increasing pain or drainage. He has no pain or swelling in his calf or thigh, only the toes MD Complaint: extremity pain and joint swelling Onset (ago): day(s) Pain Consistency: constant Location: left Quality: aching Radiation: none Relieving factors: rest Exacerbating factors: weight bearing and palpation Associated symptoms: denies other symptoms Related Data Home Medications Medication Instructions Recorded Confirmed [flaxseed oil] #0 05/05/16 ascorbic acid (vitamin C) 500 mg PO QDAY #0 05/05/16 cholecalciferol (vitamin D3) 1,000 unit PO QDAY #0 05/05/16 [Vitamin D3] ginkgo biloba 120 mg PO #0 05/05/16 multivitamin [Multiple Vitamins] 1 tab PO QDAY #0 05/05/16 omega 2-hzl-erc-fish oil [Fish Oil] 1,000 mg PO #0 05/05/16 Allergies Allergy/AdvReac Type Severity Reaction Status Date / Time azithromycin [From ZITHROMAX] Allergy Unknown Verified 05/26/18 04:03 oxycodone [OXYCODONE] Allergy Unknown RASH Verified 05/26/18 04:03 Sulfa (Sulfonamide Allergy Unknown Verified 05/26/18 04:03 Antibiotics) [SULFA (SULFONAMIDE ANTIBIOTICS)] Review of Systems Constitutional Constitutional: Denies chills, Denies fatigue, Denies fever(s), Denies frequent falls, Denies lethargy and Denies weakness Eyes Eyes: Denies change in vision, Denies eye discharge, Denies irritation and Denies loss of vision ENT Ears, Nose, Mouth, and Throat: Denies change in voice, Denies dizziness, Denies neck pain, Denies sore throat and Denies throat swelling Cardiovascular Cardiovascular: Denies chest pain, Denies irregular heart rhythm, Denies lightheadedness, Denies palpitations, Denies dyspnea, Denies dyspnea on exertion and Denies orthopnea Respiratory Respiratory: Denies cough, Denies dyspnea, Denies dyspnea on exertion and Denies wheezing Gastrointestinal Gastrointestinal: Denies abdominal pain, Denies change in bowel habits, Denies diarrhea, Denies nausea and Denies vomiting Musculoskeletal Musculoskeletal: Denies neck pain and Denies numbness Integumentary/Breasts Skin/Breast: Denies pruritus, Reports erythema, Denies rash, Reports skin pain, Reports skin swelling and Reports wounds Neurologic Neurologic: Denies behavioral changes, Denies confusion, Denies dizziness, Denies frequent falls, Denies loss of vision, Denies numbness and Denies weakness Psychiatric Psychiatric: Denies anxiety, Denies behavioral changes, Denies confusion, Denies depression, Denies homicidal ideation and Denies suicidal ideation Endocrine Endocrine: Denies fatigue, Denies flushing and Denies palpitations Hematologic/Lymphatic Hematologic/Lymphatic: Denies easy bruising Allergic/Immunologic Allergic/Immunologic: Denies urticaria, Denies throat swelling and Denies wheezing Patient History Medical History Hypertension Surgical History H/O total knee replacement Social History Smoking Status: Never smoker Smoking Status: Never smoker alcohol intake frequency: a few times a week Substance Use Type: marijuana Exam Narrative Exam Narrative: GEN: AOx3 and in mild distress EYES: Pupils are equal, round, and reactive to light and accommodation. Extraoccular muscles are intact bilaterally. There is no subconjunctival hemorrhage or exudate. CHEST: Lungs are clear to auscultation bilaterally and free of wheezes, rales, or rhonchi. Heart rate is regular rhythm, there are no murmurs, clicks, rubs, or gallops. There is no chest wall tenderness. ABD: Abdomen is soft and nontender. There is no guarding or rebound. Bowel sounds are normal in all 4 quadrants. There is no mass or organomegaly. EXT: Patient presents in walking boot. There is minimal erythema surrounding incision on toes left foot. There is no evidence of dehiscence. Wound is clean, dry and intact. There is very minimal if any erythema on the foot and none within the calf or thigh. There is no swelling or tenderness in the left calf. Otherwise, full painless ROM of all extremities with no loss of sensation or strength. SKIN: Warm, pink, and dry. No erythema or rash Initial Vital Signs Initial Vital Signs: Vital Signs Temperature 98.2 F 04/15/20 15:09 Pulse Rate 73 04/15/20 15:09 Respiratory Rate 20 04/15/20 15:09 Blood Pressure 162/86 H 04/15/20 15:09 Pulse Oximetry 98 04/15/20 15:09 MDM - Extremity (Nontraumatic) Imaging Data US - DVT: Radiologist's Impression: [address] [id number] ReportSigned Patient: Chito Rodas MMR#: [id number]: [id number]:[id number]/Sex: 74 / MDate of Service: 04/15/20Loc: EDAccession Number: [id number] Procedure: [facility] venous low extrem lt Ordering Provider: Bull Rosales D.O. PROCEDURE: PERIP VENOUS LOW EXTREM LT INDICATIONS: PAIN, SWELLING, RECENT SURGERY. PLEASE GO BELOW KNEE TECHNIQUE: Real-time imaging, as well as color and pulse Doppler interrogation, were performed of the lower extremity deep veins from the inguinal ligament to the popliteal fossa. COMPARISON: [facility], PERIP VENOUS LOW EXTREM LT, 05/26/2018, 4:48. FINDINGS: The common femoral, femoral and popliteal veins are normally compressible, and free of intraluminal thrombus. Color and pulse Doppler demonstrate normal phasic intraluminal flow. There is normal augmentation response to distal compression maneuver. IMPRESSION: No DVT found left lower extremity. Dictated by: Manuel Allison M.D. on 04/15/2020 at 16:17 Approved by: Manuel Allisno M.D. on 04/15/2020 at 16:18 MDM Narrative Medical decision making narrative: 74-year-old male, healthy with recent orthopedic surgery has minimal swelling in the region of the surgery, toes of his left foot. Sent for evaluation of possible DVT by his orthopedist. Exam and ultrasound are very reassuring. Wound shows only minimal erythema, patient already on antibiotics and has plan for close follow-up with his orthopedist. Return precautions given, questions answered to his apparent satisfaction Discharge Plan Departure Patient Disposition: Home Clinical Impression: Feared complaint without diagnosis Activity Restrictions/Additional Instructions: *You have been diagnosed with [ post operative redness, no evidence of clot. ] *What to do: *Continue to take medications as directed *Follow up with your primary care provider in 2-3 days, call for an appointment. Let them know you were seen in the Emergency Department and that we ask that you be seen in follow up *Return to ER if you should have any new, worsening or concerning symptoms Prescriptions: No Action multivitamin [Multiple Vitamins] 1 EACH tablet 1 tab PO QDAY Qty: 0 RF: 0 ginkgo biloba 120 MG tablet 120 mg PO Qty: 0 RF: 0 omega 0-wem-ikw-fish oil [Fish Oil] 1,000 MG capsule 1,000 mg PO Qty: 0 RF: 0 [flaxseed oil] Qty: 0 RF: 0 ascorbic acid (vitamin C) 500 MG tablet 500 mg PO QDAY Qty: 0 RF: 0 cholecalciferol (vitamin D3) [Vitamin D3] 1,000 UNIT tablet 1,000 unit PO QDAY Qty: 0 RF: 0 Referrals: Augustine Canada MD [Primary Care Provider] -
== END 2020-04-15 17:08 | disposition home or self-care (01) ==
PROVIDERS: Emergency Provider Emergency Medicine; PCP Internal Medicine
DX: R22.42 Localized swelling, mass and lump, left lower limb (principal); I10 Essential (primary) hypertension
CPT/HCPCS: 93971; 99283

== ENCOUNTER 2021-02-02 14:37 | Emergency (ER) | payer MEDICARE, OTHER, SELFPAY ==
[2021-02-02 14:52] VITALS: BP 151/80; PULSE 65; RESP 18; TEMP 36.5; O2SAT 99; BMI 29.5
--- NOTE | 2021-02-02 16:12 | ED.LOWEXIN ---
HPI - Extremity Injury (Lower) General Chief Complaint: Extremity Injury, Lower Stated Complaint: scrape on right escobar on Time Seen by Provider: 02/02/21 16:10 Source: patient and family Mode of arrival: Ambulatory Limitations: no limitations History of Present Illness HPI Narrative: Patient is a 75-year-old male presents with right leg wound 3 days ago. He said he was getting offer on a boat to with somebody else's both the latter was short he stepped wrong and scraped his escobar. He had some coughing last night. He noted is some surrounding erythema. He has not had any fever or chills. There is no drainage from it. He has been applying hydrogen peroxide and Neosporin to it. No numbness tingling or weakness. Related Data Home Medications Medication Instructions Recorded Confirmed [flaxseed oil] #0 05/05/16 ascorbic acid (vitamin C) 500 mg 500 mg PO QDAY #0 05/05/16 tablet cholecalciferol (vitamin D3) 25 1,000 unit PO QDAY #0 05/05/16 mcg (1,000 unit) tablet (Vitamin D3) ginkgo biloba 120 mg tablet 120 mg PO #0 05/05/16 multivitamin (Multiple Vitamins) 1 tab PO QDAY #0 05/05/16 omega 4-iei-igh-fish oil 1,000 mg 1,000 mg PO #0 05/05/16 (120 mg-180 mg) capsule (Fish Oil) Allergies Allergy/AdvReac Type Severity Reaction Status Date / Time azithromycin [From ZITHROMAX] Allergy Unknown Verified 05/26/18 04:03 oxycodone [OXYCODONE] Allergy Unknown RASH Verified 05/26/18 04:03 Sulfa (Sulfonamide Allergy Unknown Verified 05/26/18 04:03 Antibiotics) [SULFA (SULFONAMIDE ANTIBIOTICS)] Review of Systems Review of Systems Narrative: GENERAL: Denies chills,fever HEENT: Denies throat pain RESPIRATORY: Denies dyspnea, cough, wheezing CARDIOVASCULAR: Denies chest pain, palpitations GASTROINTESTINAL: Denies nausea, vomiting MUSCULOSKELETAL: Denies extremity pain, injury SKIN: See HPI NEUROLOGIC: Denies weakness, dizziness, headache, numbness 8 point review of systems is negative except for those stated above and HPI Patient History Medical History (Updated 02/02/21 @ 16:16 by Libertad Hartman DO) Hypertension Surgical History H/O total knee replacement Social History Smoking Status: Never smoker Smoking Status: Never smoker alcohol intake frequency: a few times a week Substance Use Type: marijuana Exam Initial Vital Signs Initial Vital Signs: Vital Signs Temperature 97.7 F 02/02/21 14:52 Pulse Rate 65 02/02/21 14:52 Respiratory Rate 18 02/02/21 14:52 Blood Pressure 151/80 H 02/02/21 14:52 Pulse Oximetry 99 02/02/21 14:52 GENERAL: Well-appearing, well-nourished and in no acute distress. CARDIOVASCULAR: peripheral pulses in tact, cap refill <2 sec RESPIRATORY: No respiratory distress, speaks in full sentences without difficulty EXTREMITIES: Normal range of motion, no clubbing or edema. Neurovascularly intact NEUROLOGICAL: Cranial nerves II through XII grossly intact. Normal gait and speech. SKIN: A skin tear and wound 3 cm x 1 cm at its largest no gross drainage minimal surrounding erythema Course Vital Signs Vital signs: Vital Signs - 8 hr 02/02/21 14:52 02/02/21 16:22 Temperature 97.7 F Pulse Rate 65 68 Respiratory Rate 18 16 Blood Pressure 151/80 H 139/85 Pulse Oximetry 99 96 MDM - Extremity Injury (Lower) MDM Narrative Medical decision making narrative: Overall wound appears to be healing very minimal amount of erythema at this time I do not think he needs oral antibiotics. Nice wound care and bandage is placed on it. Discussed with both he and his to monitor very closely it a change in knee antibiotics however not at this time. They are not going back on the boat and live close by. Discharge Plan Departure Patient Disposition: Home Clinical Impression: Leg wound, right Qualifiers: Encounter type: initial encounter Qualified Code(s): S81.801A - Unspecified open wound, right lower leg, initial encounter Instructions: DI for Wound Infection Activity Restrictions/Additional Instructions: *You have been diagnosed with right leg wound *What to do: At this time keep bandage on for as long as possible try to check it daily. At this time no antibiotics are needed however that can change. If you have worsening redness drainage or pain you may need antibiotics at that time he will need to be re-evaluated. Elevate and ice as needed. *Continue to take medications as directed Motrin 600 mg every 6 hours if needed for pain *Follow up with your primary care provider in 2-3 days *Return to ER if you should have increasing pain, redness, drainage or any new, worsening or concerning symptoms Prescriptions: No Action multivitamin [Multiple Vitamins] 1 EACH tablet 1 tab PO QDAY Qty: 0 RF: 0 ginkgo biloba 120 MG tablet 120 mg PO Qty: 0 RF: 0 omega 0-sox-wkd-fish oil [Fish Oil] 1,000 MG capsule 1,000 mg PO Qty: 0 RF: 0 [flaxseed oil] Qty: 0 RF: 0 ascorbic acid (vitamin C) 500 MG tablet 500 mg PO QDAY Qty: 0 RF: 0 cholecalciferol (vitamin D3) [Vitamin D3] 1,000 UNIT tablet 1,000 unit PO QDAY Qty: 0 RF: 0 Referrals: Augustine Canada MD [Primary Care Provider] -
[2021-02-02 16:22] VITALS: BP 139/85; PULSE 68; RESP 16; O2SAT 96
== END 2021-02-02 16:22 | disposition home or self-care (01) ==
PROVIDERS: Emergency Provider Emergency Medicine; PCP Internal Medicine
DX: S81.801A Unspecified open wound, right lower leg, initial encounter (principal); W22.8XXA Striking against or struck by other objects, initial encounter; Y92.814 Boat as the place of occurrence of the external cause
CPT/HCPCS: 99281

== ENCOUNTER 2021-02-04 18:04 | Emergency (ER) | payer MEDICARE, OTHER, SELFPAY ==
[2021-02-04 18:07] VITALS: BP 168/79; PULSE 87; RESP 18; TEMP 36.7; O2SAT 99
--- NOTE | 2021-02-04 19:46 | DI.US.S_ITS ---
PROCEDURE: US PERIPH VENOUS LOW EXTREM RT INDICATIONS: LACERATION; EDEMA TECHNIQUE: Real-time imaging, as well as color and pulse Doppler interrogation, were performed of the lower extremity deep veins from the inguinal ligament to the popliteal fossa. COMPARISON: None. FINDINGS: The common femoral, femoral and popliteal veins are normally compressible, and free of intraluminal thrombus. Color and pulse Doppler demonstrate normal phasic intraluminal flow. There is normal augmentation response to distal compression maneuver. IMPRESSION: 1. No evidence of deep venous thrombosis in the right lower extremity. Dictated by: Inderjit West M.D. on 02/04/2021 at 20:21 Approved by: Inderjit West M.D. on 02/04/2021 at 20:26
--- NOTE | 2021-02-04 19:57 | ED_ITS ---
HPI - Skin/Abscess/Foreign Bdy <Mary Jo Marr PA-C - Last Filed: 02/04/21 21:12> General Chief complaint: Skin/Abscess/Foreign Body Stated complaint: revisit from sun, not getting better, possible sep Time Seen by Provider: 02/04/21 19:35 Source: patient Mode of arrival: Ambulatory Limitations: no limitations History of Present Illness HPI narrative: 75-year-old male with past medical history hypertension presents to the ED with a right escobar wound. Patient sustained the wound as a scrape 1 week ago, was seen in the ED 2 days ago. Patient was not started on any antibiotics, given absence signs of infection, ED return precautions. Patient returned to the ED today since his right leg has been causing him more discomfort, the erythema has worsened. Patient denies any discharge, warmth. Patient endorses right leg swelling and mild lightheadedness. Has prior history of DVT. Patient is not on blood thinners currently. Patient denies numbness, tingling, weakness. Patient denies fever, chills, chest pain, shortness of breath, cough, nausea, vomiting, abdominal pain, syncope. Related Data Home Medications Medication Instructions Recorded Confirmed [flaxseed oil] #0 05/05/16 ascorbic acid (vitamin C) 500 mg 500 mg PO QDAY #0 05/05/16 tablet cholecalciferol (vitamin D3) 25 1,000 unit PO QDAY #0 05/05/16 mcg (1,000 unit) tablet (Vitamin D3) ginkgo biloba 120 mg tablet 120 mg PO #0 05/05/16 multivitamin (Multiple Vitamins) 1 tab PO QDAY #0 05/05/16 omega 4-ghw-jlu-fish oil 1,000 mg 1,000 mg PO #0 05/05/16 (120 mg-180 mg) capsule (Fish Oil) Previous Rx's Medication Instructions Recorded cephalexin 500 mg capsule 500 mg PO QID 10 Days #40 cap 02/04/21 Allergies Allergy/AdvReac Type Severity Reaction Status Date / Time azithromycin [From ZITHROMAX] Allergy Unknown Verified 02/04/21 18:11 oxycodone [OXYCODONE] Allergy Unknown RASH Verified 02/04/21 18:11 Sulfa (Sulfonamide Allergy Unknown Verified 02/04/21 18:11 Antibiotics) [SULFA (SULFONAMIDE ANTIBIOTICS)] Review of Systems <Mary Jo Marr PA-C - Last Filed: 02/04/21 21:12> Constitutional Constitutional: Denies chills, Denies fatigue, Denies fever(s), Denies frequent falls, Denies lethargy and Denies weakness Eyes Eyes: Denies change in vision, Denies eye discharge, Denies irritation and Denies loss of vision ENT Ears, Nose, Mouth, and Throat: Denies change in voice, Denies dizziness, Denies neck pain, Denies sore throat and Denies throat swelling Cardiovascular Cardiovascular: Denies chest pain, Denies irregular heart rhythm, Denies lightheadedness, Denies palpitations, Denies dyspnea, Denies dyspnea on exertion and Denies orthopnea Respiratory Respiratory: Denies cough, Denies dyspnea, Denies dyspnea on exertion and Denies wheezing Gastrointestinal Gastrointestinal: Denies abdominal pain, Denies change in bowel habits, Denies diarrhea, Denies nausea and Denies vomiting Musculoskeletal Musculoskeletal: Denies neck pain and Denies numbness Integumentary/Breasts Skin/Breast: Denies pruritus, Denies erythema, Denies rash and Reports wounds Comments: Wound on right escobar with increasing erythema, right leg swelling. Neurologic Neurologic: Denies behavioral changes, Denies confusion, Denies dizziness, Denies frequent falls, Denies loss of vision, Denies numbness and Denies weakness Psychiatric Psychiatric: Denies anxiety, Denies behavioral changes, Denies confusion, Denies depression, Denies homicidal ideation and Denies suicidal ideation Endocrine Endocrine: Denies fatigue, Denies flushing and Denies palpitations Hematologic/Lymphatic Hematologic/Lymphatic: Denies easy bruising Allergic/Immunologic Allergic/Immunologic: Denies urticaria, Denies throat swelling and Denies wheezing Patient History <Mary Jo Marr PA-C - Last Filed: 02/04/21 21:12> Medical History (Updated 02/04/21 @ 20:41 by Mary Jo Marr PA-C) Hypertension Surgical History H/O total knee replacement Social History Smoking Status: Never smoker Smoking Status: Never smoker alcohol intake frequency: a few times a week Substance Use Type: marijuana Exam <Mary Jo Marr PA-C - Last Filed: 02/04/21 21:12> Initial Vital Signs Initial Vital Signs: Vital Signs Temperature 98.1 F 02/04/21 18:07 Pulse Rate 87 02/04/21 18:07 Respiratory Rate 18 02/04/21 18:07 Blood Pressure 168/79 H 02/04/21 18:07 Pulse Oximetry 99 02/04/21 18:07 Const General: cooperative [facility] Head: normocephalic and atraumatic Ears: external ears normal and TM's normal bilaterally Nose: external nose normal and No nasal discharge Face and sinus: sinuses nontender, face symmetric, no sinus tenderness and No dr y mucous membranes Mouth: oral mucosae normal and moist mucous membranes Teeth and gingiva: dentition normal Throat: tonsils normal and uvula midline Eyes General: appearance normal, both eyes and all related structures Eyelids: eyelids normal Conjunctivae: conjunctivae normal Sclera: sclerae normal Pupils: PERRL EOM: EOM intact bilaterally Neck Neck: normal visual inspection, trachea midline, No lymphadenopathy, No midline deformity and No JVD Lymphatic: No lymphedema Chest Chest: normal inspection of the chest Resp Effort & Inspection: normal respiratory effort, able to speak in complete sentences, no respiratory distress and no use of accessory muscles Auscultation: clear to auscultation bilaterally, no rales, no rhonchi and no wheezes Cardio Rate: regular rate Rhythm: regular rhythm Heart Sounds: no click, no gallops, no murmurs and no rubs Pulses: normal peripheral pulses GI Inspection: non-distended Palpation: soft, no hepatosplenomegaly, No guarding, No pulsatile mass and No tender Auscultation: normal bowel sounds Back/Spine/Pelvis Back: No CVA tenderness Cervical Spine: cervical ROM normal and No pain with cervical ROM Thoracic/Lumbar Spine: thoracic and lumbar spine normal to inspection Skin General: No jaundice and No petechiae Other: A skin tear abrasion visualized on right escobar, with surrounding erythema. No discharge noted. No warmth. Right leg swollen compared to left. Neurovascularly intact. Neuro General: patient alert, patient oriented x3, gait normal and no focal motor deficits Speech: speech normal Extrem General: full ROM, no clubbing, cyanosis or edema, no pedal edema and no calf tenderness Psych Appearance: well kempt Mental Status: mental status grossly normal Attitude: cooperative Thought Content: normal and suicidality Judgment: judgment good <Mildred Poole MD - Last Filed: 02/05/21 02:01> Initial Vital Signs Initial Vital Signs: Vital Signs Temperature 98.1 F 02/04/21 18:07 Pulse Rate 87 02/04/21 18:07 Respiratory Rate 18 02/04/21 18:07 Blood Pressure 168/79 H 02/04/21 18:07 Pulse Oximetry 99 02/04/21 18:07 Course <Mary Jo Marr PA-C - Last Filed: 02/04/21 21:12> Course Course Narrative: Ultrasound of the right leg negative for DVT. Patient started on cephalexin. Will discharge home with prescription for cephalexin, ED return precautions. Orders Ordered: ED Orders 02/04/21 19:46 US periph venous low extrem rt Stat Discontinued Medications Bacitracin (Bacitracin Oint 0.9 Gm Pckt) 1 applic TOP NOW ONE Stop: 02/04/21 20:01 Last Admin: 02/04/21 20:05 Dose: 1 applic Documented by: MICHAEL Cephalexin HCl (Cephalexin 250 Mg Capsule) 500 mg PO NOW ONE Stop: 02/04/21 19:49 Last Admin: 02/04/21 19:58 Dose: 500 mg Documented by: MICHAEL Vital Signs Vital signs: Vital Signs - 8 hr 02/04/21 18:07 02/04/21 20:49 Temperature 98.1 F Pulse Rate 87 70 Respiratory Rate 18 17 Blood Pressure 168/79 H 167/95 H Pulse Oximetry 99 97 <Mildred Poole MD - Last Filed: 02/05/21 02:01> Orders Ordered: ED Orders 02/04/21 19:46 US periph venous low extrem rt Stat Discontinued Medications Bacitracin (Bacitracin Oint 0.9 Gm Pckt) 1 applic TOP NOW ONE Stop: 02/04/21 20:01 Last Admin: 02/04/21 20:05 Dose: 1 applic Documented by: MICHAEL Cephalexin HCl (Cephalexin 250 Mg Capsule) 500 mg PO NOW ONE Stop: 02/04/21 19:49 Last Admin: 02/04/21 19:58 Dose: 500 mg Documented by: MICHAEL Vital Signs Vital signs: Vital Signs - 8 hr 02/04/21 18:07 02/04/21 20:49 Temperature 98.1 F Pulse Rate 87 70 Respiratory Rate 18 17 Blood Pressure 168/79 H 167/95 H Pulse Oximetry 99 97 MDM - Skin/Abscess/Foreign Bdy <Mary Jo Marr PA-C - Last Filed: 02/04/21 21:12> Medical Records Attestation: I reviewed the patient's medical records. Imaging Data US - DVT: Radiologist's Impression: PROCEDURE:? US PERIPH VENOUS LOW EXTREM RT ? INDICATIONS:? LACERATION; EDEMA ? TECHNIQUE:? Real-time imaging, as well as color and pulse Doppler interrogation, were performed of the lower extremity deep veins from the inguinal ligament to the popliteal fossa.? ? COMPARISON:? None. ? FINDINGS:? The common femoral, femoral and popliteal veins are normally compressible, and free of intraluminal thrombus.? Color and pulse Doppler demonstrate normal phasic intraluminal flow.? There is normal augmentation response to distal compression maneuver. ? ? IMPRESSION:? ? 1. No evidence of deep venous thrombosis in the right lower extremity. ? ? Dictated by: Inderjit West M.D. on 02/04/2021 at 20:21 ? ? Approved by: Inderjit West M.D. on 02/04/2021 at 20:26 ? [facility] Narrative Medical decision making narrative: 75-year-old male with past medical history hypertension presents to the ED with a right escobar wound. Concern for cellulitis versus DVT. Will start patient on cephalexin. Will order ultrasound of the right lower extremity. Will reassess. Discharge Plan Departure Patient Disposition: Home Clinical Impression: Leg wound, right Qualifiers: Encounter type: subsequent encounter Qualified Code(s): S81.801D - Unspecified open wound, right lower leg, subsequent encounter Instructions: DI for Wound Infection Activity Restrictions/Additional Instructions: You were evaluated in the ED today for a right leg wound. Your ultrasound of the right lower leg did not show any evidence of DVTs. Given worsening redness and discomfort, you have been started on antibiotic cephalexin. Please complete the entire course of antibiotics. Return to the ED if you experience worsening symptoms such as worsening redness, swelling, discharge, warmth, fever, chills. Prescriptions: New cephalexin 500 mg capsule 500 mg PO QID 10 Days Qty: 40 RF: 0 No Action multivitamin [Multiple Vitamins] 1 EACH tablet 1 tab PO QDAY Qty: 0 RF: 0 ginkgo biloba 120 MG tablet 120 mg PO Qty: 0 RF: 0 omega 2-rna-xuc-fish oil [Fish Oil] 1,000 MG capsule 1,000 mg PO Qty: 0 RF: 0 [flaxseed oil] Qty: 0 RF: 0 ascorbic acid (vitamin C) 500 MG tablet 500 mg PO QDAY Qty: 0 RF: 0 cholecalciferol (vitamin D3) [Vitamin D3] 1,000 UNIT tablet 1,000 unit PO QDAY Qty: 0 RF: 0 Referrals: Augustine Canada MD [Primary Care Provider] - <Mildred Poole MD - Last Filed: 02/05/21 02:01> Cosign ED Attending Cosignature Attestation: I was immediately available in the department for consultation throughout this patient's visit. I agree with documentation as above. Mildred Poole MD
[2021-02-04] MEDS: cephALEXin 250 MG CAPSULE 500 MG PO (19:58)
[2021-02-04] MEDS: BACITRACIN OINT 0.9 GM PCKT 1 APPLIC TOP (20:05)
[2021-02-04 20:49] VITALS: BP 167/95; PULSE 70; RESP 17; O2SAT 97
== END 2021-02-04 20:51 | disposition home or self-care (01) ==
PROVIDERS: Emergency Provider Emergency Medicine; PCP Internal Medicine
DX: S81.801D Unspecified open wound, right lower leg, subsequent encounter (principal)
CPT/HCPCS: 93971; 99283; 99284

== ENCOUNTER 2021-04-21 22:43 | Emergency (ER) | payer MEDICARE, OTHER, SELFPAY ==
[2021-04-21 22:55] VITALS: BP 176/93; PULSE 94; RESP 18; TEMP 36.4; O2SAT 97; BMI 29.5
[2021-04-21 23:40] VITALS: BP 180/96
--- NOTE | 2021-04-21 23:44 | PC.NURSE ---
Patient reports that he felt jittery today and checked his BP which was elevated and continued to be elevated and was concerned given familiar hx.
--- NOTE | 2021-04-21 23:58 | ED_ITS ---
HPI - General Adult General Chief complaint: Hypertension Stated complaint: HIGH BLOOD PRESSURE Time Seen by Provider: 04/21/21 23:26 Source: patient Mode of arrival: Ambulatory History of Present Illness HPI narrative: Patient is a 75-year-old male. Does have a history of high blood pressure. Is on multiple medications. States he does not take his blood pressure at home very often because when it is elevated he gets anxious about it and then it continues to be elevated. He states that earlier today he was not feeling very well. No chest pain or shortness of breath but has had some sinus congestion a slight headache. He has taken his blood pressure medications. He took his blood pressure at home and it was elevated with a systolic in the 170s. He came to the emergency department for evaluation. Related Data Home Medications Medication Instructions Recorded Confirmed [flaxseed oil] #0 05/05/16 ascorbic acid (vitamin C) 500 mg 500 mg PO QDAY #0 05/05/16 tablet cholecalciferol (vitamin D3) 25 1,000 unit PO QDAY #0 05/05/16 mcg (1,000 unit) tablet (Vitamin D3) ginkgo biloba 120 mg tablet 120 mg PO #0 05/05/16 multivitamin (Multiple Vitamins) 1 tab PO QDAY #0 05/05/16 omega 3-qhw-vuf-fish oil 1,000 mg 1,000 mg PO #0 05/05/16 (120 mg-180 mg) capsule (Fish Oil) Allergies Allergy/AdvReac Type Severity Reaction Status Date / Time azithromycin [From ZITHROMAX] Allergy Unknown Verified 02/04/21 18:11 oxycodone [OXYCODONE] Allergy Unknown RASH Verified 02/04/21 18:11 Sulfa (Sulfonamide Allergy Unknown Verified 02/04/21 18:11 Antibiotics) [SULFA (SULFONAMIDE ANTIBIOTICS)] Review of Systems Constitutional Constitutional: Reports as per HPI and Reports system reviewed and no additional complaints, except as documented ENT Ears, Nose, Mouth, and Throat: Reports system reviewed and no additional complaints, except as documented Cardiovascular Cardiovascular: Reports system reviewed and no additional complaints, except as documented and Denies chest pain Respiratory Respiratory: Reports system reviewed and no additional complaints, except as documented Gastrointestinal Gastrointestinal: Reports system reviewed and no additional complaints, except as documented Musculoskeletal Comments: No extremity swelling Integumentary/Breasts Skin/Breast: Reports system reviewed and no additional complaints, except as documented Neurologic Neurologic: Reports system reviewed and no additional complaints, except as documented Hematologic/Lymphatic On Anticoagulants: No Patient History Medical History (Updated 04/22/21 @ 00:53 by Cedrick Hernandez DO) Hypertension Surgical History H/O total knee replacement Social History Smoking Status: Never smoker Smoking Status: Never smoker alcohol intake frequency: 3 or more drinks per day Substance Use Type: marijuana Exam Initial Vital Signs Initial Vital Signs: Vital Signs Temperature 97.5 F L 04/21/21 22:55 Pulse Rate 94 H 04/21/21 22:55 Respiratory Rate 18 04/21/21 22:55 Blood Pressure 176/93 H 04/21/21 22:55 Pulse Oximetry 97 04/21/21 22:55 Const General: cooperative, comfortable and well developed HENMT Head: normal to inspection and normocephalic Resp Effort & Inspection: normal respiratory effort Auscultation: clear to auscultation bilaterally Cardio Rate: regular rate Rhythm: regular rhythm GI Inspection: normal to inspection Neuro General: patient alert, patient awake, patient oriented x3 and moves all extremities Extrem General: normal to inspection, capillary refill normal and no pedal edema Psych Appearance: grossly normal and well kempt Course Orders Ordered: ED Orders 04/21/21 23:27 EKG-12 Lead Stat 04/21/21 23:55 Basic Metabolic Panel Stat Complete Blood Count AUTO DIFF Stat Troponin & CK Cardiac Panel Stat Vital Signs Vital signs: Vital Signs - 8 hr 04/21/21 22:55 04/21/21 23:40 Temperature 97.5 F L Pulse Rate 94 H Respiratory Rate 18 Blood Pressure 176/93 H 180/96 H Pulse Oximetry 97 Medical Decision Making Lab Data Lab results reviewed: Yes I reviewed the patient's lab results. Result diagrams: 04/21/21 23:55 04/21/21 23:55 Labs: Lab Results 04/21/21 04/21/21 Range/Units 23:55 23:55 WBC 5.1 (4.5-11.0) X10^3/uL RBC 4.48 L (4.5-5.9) X10^6/uL Hgb 15.1 (13.5-17.5) g/dL Hct 43.6 (41-53) % MCV 97.3 (80-100) fL MCH 33.6 (26-34) PG MCHC 34.6 (30-36) % RDW 13.9 (11.6-14.8) % Plt Count 141 L (150-400) X10^3/uL Neut % (Auto) 69.1 (50-75) % Lymph % (Auto) 16.4 L (25-40) % [place] % (Auto) 13.5 (3-14) % Eos % (Auto) 0.6 L (2-4) % Baso % (Auto) 0.4 (0-2) % Neut # (Auto) 3500 (0449-1423) /uL Lymph # (Auto) 800 L (5908-7038) /uL [place] # (Auto) 700 (0-900) /uL Eos # (Auto) 0 (0-450) /uL Baso # (Auto) 0 (0-100) /uL Sodium 137 (137-145) mmol/L Potassium 4.3 (3.4-5.1) mmol/L Chloride 105 (98-107) mmol/L Carbon Dioxide 27 (22-32) mmol/L BUN 21 H (9-20) mg/dL Creatinine 0.92 (0.66-1.25) mg/dL Estimated GFR > 60.0 (>60) mL/min BUN/Creatinine Ratio 22.8 H (6-22) Glucose 109 (80-110) mg/dL Calcium 9.2 (8.4-10.2) mg/dL Total Creatine Kinase 82 (55-170) U/L CK-MB (CK-2) TNP CK-MB (CK-2) Rel Index TNP Troponin I < 0.012 (0.01-0.034) ng/mL ECG Data Attestation: I personally reviewed and interpreted this ECG as follows: Interpretation: Sinus rhythm Ventricular rate 80 Normal axis Normal QRS Normal QTC Artifact in leads V1 and V2 No ST T wave changes MDM Narrative Medical decision making narrative: Patient is hypertensive but has no apparent end-organ dysfunction from this. Low suspicion for ACS. I had discussion with him regarding his blood pressure. No intervention needed here in the ER. He will contact his primary doctor for follow-up and to discuss any medication changes. He was given return precautions. He expressed understanding and agreement. Discharge Plan Departure Patient Disposition: Home Clinical Impression: Hypertension Instructions: DI for High Blood Pressure Activity Restrictions/Additional Instructions: Continue to take all of your medications as directed. I do recommend that you take your blood pressure at home like we discussed and talk with your primary doctor about any changes to medications. Return to the emergency department for any new or worsening symptoms. Prescriptions: No Action multivitamin [Multiple Vitamins] 1 EACH tablet 1 tab PO QDAY Qty: 0 0RF ginkgo biloba 120 MG tablet 120 mg PO Qty: 0 0RF omega 0-mry-dwm-fish oil [Fish Oil] 1,000 MG capsule 1,000 mg PO Qty: 0 0RF [flaxseed oil] Qty: 0 0RF ascorbic acid (vitamin C) 500 MG tablet 500 mg PO QDAY Qty: 0 0RF cholecalciferol (vitamin D3) [Vitamin D3] 1,000 UNIT tablet 1,000 unit PO QDAY Qty: 0 0RF Referrals: Augustine Canada MD [Primary Care Provider] -
[2021-04-22 00:05] LABS: Add Manual Diff / Slide Review NO; Basophils Absolute Auto 0 /uL (0-100); Basophils Percent Auto 0.4 % (0-2); Eosinophils Absolute Auto 0 /uL (0-450); Eosinophils Percent Auto 0.6 % (2-4); Hematocrit 43.6 % (41-53); Hemoglobin 15.1 g/dL (13.5-17.5); Lymphocytes Absolute Auto 800 /uL (1100-4500); Lymphocytes Percent Auto 16.4 % (25-40); Mean Corpuscular HGB Conc 34.6 % (30-36); Mean Corpuscular Hemoglobin 33.6 PG (26-34); Mean Corpuscular Volume 97.3 fL (80-100); Monocytes Absolute Auto 700 /uL (0-900); Monocytes Percent Auto 13.5 % (3-14); Neutrophils Absolute Auto 3500 /uL (1500-7000); Neutrophils Percent Auto 69.1 % (50-75); Platelet Count 141 X10^3/uL (150-400); Red Blood Cell Count 4.48 X10^6/uL (4.5-5.9); Red Cell Distribution Width 13.9 % (11.6-14.8); White Blood Cell Count 5.1 X10^3/uL (4.5-11.0)
[2021-04-22 00:20] LABS: BUN Creatinine Ratio 22.8 (6-22); Blood Urea Nitrogen 21 mg/dL (9-20); Calcium 9.2 mg/dL (8.4-10.2); Carbon Dioxide 27 mmol/L (22-32); Chloride 105 mmol/L (98-107); Creatine Kinase 82 U/L (55-170); Estimated Glomerular Filt Rate > 60.0 mL/min (>60); Glucose 109 mg/dL (80-110); HEMOLYSIS 28 (0-50); Potassium 4.3 mmol/L (3.4-5.1); Sodium 137 mmol/L (137-145)
[2021-04-22 00:32] LABS: Troponin I < 0.012 ng/mL (0.01-0.034)
[2021-04-22 00:56] VITALS: BP 169/97; PULSE 87; RESP 16; O2SAT 97
== END 2021-04-22 01:00 | disposition home or self-care (01) ==
PROVIDERS: Emergency Provider Emergency Medicine; PCP Internal Medicine
DX: I10 Essential (primary) hypertension (principal)
CPT/HCPCS: 36415; 80048; 82550; 84484; 85025; 93010; 99283

== ENCOUNTER 2022-04-18 12:54 | Emergency (ER) | payer MEDICARE, OTHER, SELFPAY ==
[2022-04-18 12:57] VITALS: BP 172/90; PULSE 83; RESP 17; TEMP 36.7; O2SAT 99; BMI 29.5
--- NOTE | 2022-04-18 15:42 | ED_ITS ---
HPI - Back Pain/Injury General Chief Complaint: Back Pain/Injury Stated Complaint: lower back pain t-30 Time Seen by Provider: 04/18/22 15:42 Source: patient Mode of arrival: Ambulatory Limitations: no limitations History of Present Illness HPI Narrative: This is a 76-year-old male with history of hypertension and dyslipidemia who presents with complaint of right lower back pain that has been present for the past month. He states initially started after guarding he thought he would pulled a muscle he has been taking Tylenol and sometimes Advil for pain which is helpful. Patient states today he was getting his boat ready to go cramping when he had a significant increase in his in the right lower back. He describes as sharp, particularly with movement such as rotation and bending. Patient states no pain radiating down his legs, no loss of bowel or bladder control. No paresthesias. Patient notes he is had a little bit more sense of urgency but no dysuria, no incontinence, does not appreciate frequency. Patient has not had any rashes or skin changes. He denies any pain to the anterior abdomen. Patient denies any nausea or vomiting, no diarrhea constipation. He states he is had hip surgery and knee surgery in the past. No tobacco, occasional alcohol, occasional THC but no illicit. Patient is in between primary care providers but is set to establish an appointment. Patient describes his pain as mild while seated. Related Data Home Medications Medication Instructions Recorded Confirmed [flaxseed oil] ##0 05/05/16 ascorbic acid (vitamin C) 500 mg 500 mg PO QDAY ##0 05/05/16 tablet cholecalciferol (vitamin D3) 25 1,000 unit PO QDAY ##0 05/05/16 mcg (1,000 unit) tablet (Vitamin D3) ginkgo biloba 120 mg tablet 120 mg PO ##0 05/05/16 multivitamin (Multiple Vitamins 1 tab PO QDAY ##0 05/05/16 tablet) omega 0-uyj-flr-fish oil 1,000 mg 1,000 mg PO ##0 05/05/16 (120 mg-180 mg) capsule (Fish Oil) amlodipine 5 mg tablet 5 mg PO DAILY 04/18/22 04/18/22 losartan 100 mg tablet 100 mg PO DAILY 04/18/22 04/18/22 metoprolol succinate 25 mg 25 mg PO DAILY 04/18/22 04/18/22 tablet,extended release 24 hr rosuvastatin 5 mg tablet 5 mg PO DAILY 04/18/22 04/18/22 Previous Rx's Medication Instructions Recorded cyclobenzaprine 10 mg tablet 10 mg PO TID PRN muscle spasm #14 04/18/22 tabs prednisone 20 mg tablet 40 mg PO DAILY #10 tabs 04/18/22 Allergies Allergy/AdvReac Type Severity Reaction Status Date / Time azithromycin [From ZITHROMAX] Allergy Unknown Verified 04/18/22 13:07 oxycodone [OXYCODONE] Allergy Unknown RASH Verified 04/18/22 13:07 Sulfa (Sulfonamide Allergy Unknown Verified 04/18/22 13:07 Antibiotics) [SULFA (SULFONAMIDE ANTIBIOTICS)] Review of Systems Review of Systems ROS Unobtainable: All systems reviewed & are unremarkable except as noted in HPI and below Patient History Medical History (Updated 04/18/22 @ 16:02 by Kim Orosco DO) Hypertension Surgical History H/O total knee replacement Social History Smoking Status: Never smoker Smoking Status: Never smoker alcohol intake frequency: a few times a week Substance Use Type: marijuana Exam Narrative Exam Narrative: GENERAL: Alert and oriented x three, male in mild distress. HEENT: Head normocephalic, atraumatic, EOMI, pupils reactive, face symmetric, moist mucous membranes NECK: Supple, full range of motion CARDIOVASCULAR: Regular rate and rhythm without murmurs, rubs or gallops. RESPIRATORY: Breath sounds equal bilaterally, no wheezes rales or rhonchi. ABDOMEN: Soft, nontender. Normoactive bowel sounds all 4 quadrants. No guarding or rebound, rigidity, no mass : No CVA tenderness bilaterally. No rash, erythema or skin changes to the back. BACK: No cervical, thoracic or lumbar vertebral point tenderness. Patient has normal range of motion. Patient's gait is normal. Rectal exam is deferred. Muscle strength is 5/5 in lower extremities, DTRs are 2/4 and lower extremities. Dorsalis pedis and tibialis pulses are 2+ and lower extremities. Sensation is intact in the lower extremities. EXTREMITIES: Normal range of motion, no clubbing or edema. Neurovascularly intact NEUROLOGICAL: Cranial nerves II through XII grossly intact. Moving all extremities SKIN: Warm, dry, no petechiae, no rashes or lesions. Initial Vital Signs Initial Vital Signs: Vital Signs Temperature 98.1 F 04/18/22 12:57 Pulse Rate 83 04/18/22 12:57 Respiratory Rate 17 04/18/22 12:57 Blood Pressure 172/90 H 04/18/22 12:57 Pulse Oximetry 99 04/18/22 12:57 Oxygen Delivery Method 04/18/22 12:57 Course Orders Ordered: ED Orders 04/18/22 15:57 XR lumbar spine 2-3V Stat Vital Signs Vital signs: Vital Signs - 8 hr 04/18/22 12:57 Temperature 98.1 F Pulse Rate 83 Respiratory Rate 17 Blood Pressure 172/90 H Pulse Oximetry 99 Oxygen Delivery Method Room Air MDM - Back Pain/Injury Lab Data Labs: Urine Dip Bedside Urine Glucose Negative Bedside Urine Bilirubin - Negative Bedside Urine Ketone - Negative Urine Specific [place] 1.015 Bedside Urine Occult Blood - Negative Bedside Urine pH 6 Bedside Urine Protein - Negative Bedside Urine Urobilinogen - Negative Bedside Urine Nitrite - Negative Bedside Urine Leukocytes - Negative Esterase Imaging Data Lumbar spine xray: Radiologist's Impression: [address] [address] XRay Report Signed Patient: Chito Rodas MR#: [id number] : 1945 Acct:[id number] Age/Sex: 76 / M Date of Service: 04/18/22 Loc: ED Accession Number: [id number] ?? Procedure: XR lumbar spine 2-3V Ordering Provider: Kim Orosco D.O. PROCEDURE:? XR LUMBAR SPINE 2-3V ? INDICATIONS:? low back pain, left side, worse movement x 1 month ? TECHNIQUE:? 3 views of the lumbar spine were acquired.? ? COMPARISON:? None. ? FINDINGS:? ? Bones:? 5 lhq-inb-rczrlon vertebrae are present.? There is normal bony alignment.? No vertebral body compression fractures.? No suspicious bony lesions.? ? Soft tissues:? Overlying bowel gas pattern is normal.? No suspicious soft tissue calcifications.? ? ? IMPRESSION:? No acute finding.? Mild lower lumbar spine degenerative changes. ? ? Dictated by: Perfecto Burgos M.D. on 04/18/2022 at 16:15 ? ? Approved by: Perfecto Burgos M.D. on 04/18/2022 at 16:16?? [facility] Narrative Medical decision making narrative: This is a 76-year-old male with persistent right-sided lower lumbar pain worse with movement for the past month. He noticed some mild urinary symptoms such as urgency. He does not have any other red flag symptoms. Patient presents today with increased pain after getting his boat ready for crabbing. Patient urine shows no signs of infection, no, his abdominal exam is benign, his symptoms seem more consistent with musculoskeletal source. Patient has no acute neurologic changes on L-spine x-ray was obtained to evaluate for any sort of metastatic or significant bony changes. On recheck patient notes he has had an MRI of his back in the past and was told he had some minor disc bulge. We discussed return precautions, red flag symptoms. Short course of steroids to see if this is helpful, muscle relaxer and patient is to continue with Tylenol and/or Advil as needed since these have been helping his pain. He is to follow-up in the next 1 2 weeks for recheck persisting but tolerable at home. Discharge Plan Departure Patient Disposition: Home Clinical Impression: Lumbar back pain Instructions: DI for Low Back Pain Activity Restrictions/Additional Instructions: Follow-up with your physician for check. May take Tylenol up to a 1000 mg every 6 hours and/or ibuprofen up to 600 mg every 6 hours. You can take steroid daily until gone. Take this medication with food It may be helpful to take a muscle relaxer 1 tablet every 8 hours needed. This medication can make you sleepy to drive, from hazard activities making decisions while taking it. Prescription sent to [facility] in [place] Please return for fevers, rapidly worsening pain, loss of bowel or bladder control, inability to lift or move legs, weakness, loss of sensation, persistent vomiting, black or bloody stools or other new or concerning changes. Prescriptions: New cyclobenzaprine 10 mg tablet 10 mg PO TID PRN (Reason: muscle spasm) Qty: 14 0RF prednisone 20 mg tablet 40 mg PO DAILY Qty: 10 0RF No Action multivitamin [Multiple Vitamins] 1 EACH tablet 1 tab PO QDAY Qty: 0 ginkgo biloba 120 MG tablet 120 mg PO Qty: 0 omega 8-uvq-yfq-fish oil [Fish Oil] 1,000 MG capsule 1,000 mg PO Qty: 0 [flaxseed oil] Qty: 0 ascorbic acid (vitamin C) 500 MG tablet 500 mg PO QDAY Qty: 0 cholecalciferol (vitamin D3) [Vitamin D3] 1,000 UNIT tablet 1,000 unit PO QDAY Qty: 0 amlodipine 5 mg tablet 5 mg PO DAILY metoprolol succinate 25 mg tablet extended release 24 hr 25 mg PO DAILY losartan 100 mg tablet 100 mg PO DAILY rosuvastatin 5 mg tablet 5 mg PO DAILY Referrals: Augustine Canada MD [Primary Care Provider] -
--- NOTE | 2022-04-18 15:57 | DI.RAD.S_ITS ---
PROCEDURE: XR LUMBAR SPINE 2-3V INDICATIONS: low back pain, left side, worse movement x 1 month TECHNIQUE: 3 views of the lumbar spine were acquired. COMPARISON: None. FINDINGS: Bones: 5 crr-xik-jmiehkg vertebrae are present. There is normal bony alignment. No vertebral body compression fractures. No suspicious bony lesions. Soft tissues: Overlying bowel gas pattern is normal. No suspicious soft tissue calcifications. IMPRESSION: No acute finding. Mild lower lumbar spine degenerative changes. Dictated by: Perfecto Burgos M.D. on 04/18/2022 at 16:15 Approved by: Perfecto Burgos M.D. on 04/18/2022 at 16:16
[2022-04-18 17:03] VITALS: BP 171/87; PULSE 85; RESP 17; O2SAT 98
== END 2022-04-18 17:04 | disposition home or self-care (01) ==
PROVIDERS: Emergency Provider Emergency Medicine; PCP Internal Medicine
DX: M54.50 Low back pain, unspecified (principal)
CPT/HCPCS: 72100; 81003; 99281; 99283

== ENCOUNTER → 2023-02-13 15:29 | Outpatient (CLI) | payer MEDICARE, OTHER, SELFPAY | PROVIDERS: PCP Family Medicine; Visit Provider Physician Assistant Medical | DX: J02.9 Acute pharyngitis, unspecified (principal) | CPT/HCPCS: 87070 ==

== ENCOUNTER → 2024-03-31 17:21 | Outpatient (CLI) | payer MEDICARE, OTHER, SELFPAY ==
--- NOTE | 2024-03-31 17:23 | DI.RAD.S_ITS ---
PROCEDURE: XR TIBIA FIBULA LT 2V INDICATIONS: Left lower leg injury TECHNIQUE: 2 views of the tibia and fibula were acquired. COMPARISON: None. FINDINGS: Bones: No fractures or dislocations. Left knee arthroplasty. No suspicious bony lesions. Soft tissues: No suspicious soft tissue calcifications or masses. IMPRESSION: No acute bony abnormality. Dictated by: Saravanan Hardy M.D. on 04/02/2024 at 12:09 Approved by: Saravanan Hardy M.D. on 04/02/2024 at 12:10
== END ==
PROVIDERS: PCP Family Medicine; Referring Provider Nurse Practitioner Family; Visit Provider Nurse Practitioner Family
DX: S89.92XA Unspecified injury of left lower leg, initial encounter (principal); X58.XXXA Exposure to other specified factors, initial encounter
CPT/HCPCS: 73590

== ENCOUNTER → 2024-07-24 14:43 | Outpatient (CLI) | payer MEDICARE, OTHER, SELFPAY ==
--- NOTE | 2024-07-24 14:45 | DI.RAD.S_ITS ---
PROCEDURE: XR CHEST 2V INDICATIONS: Chest pain with acute cough TECHNIQUE: 2 views of the chest were acquired. COMPARISON: [facility], CR, XR CHEST 1V, 02/15/2019, 4:25. FINDINGS: Surgical changes and devices: None. Lungs and pleura: Lungs are clear. No pleural effusions or pneumothorax. Mediastinum: Mediastinal contours are normal. Heart size is normal. Bones and chest wall: No suspicious bony abnormalities. Soft tissues appear unremarkable. IMPRESSION: No acute cardiopulmonary abnormality is seen. Approved by: Addison Ayoub M.D. on 07/24/2024 at 15:48
== END ==
PROVIDERS: PCP Family Medicine; Referring Provider Registered Nurse; Visit Provider Registered Nurse
DX: R07.9 Chest pain, unspecified (principal)
CPT/HCPCS: 71046

== ENCOUNTER 2025-01-07 22:50 | Emergency (ER) | payer MEDICARE, OTHER, SELFPAY ==
[2025-01-07 23:07] VITALS: BP 175/82; PULSE 61; RESP 18; TEMP 36.6; O2SAT 97; BMI 28.2
--- NOTE | 2025-01-08 00:38 | ED.RECABL ---
HPI - Recheck/Abnormal Lab/Rx General Chief Complaint: Recheck/Abnormal Lab/Rx Stated Complaint: Chills, High Blood Pressure, L Arm Pain [id number] Time Seen by Provider: 01/08/25 00:04 Source: patient Mode of arrival: Ambulatory History of Present Illness HPI narrative: 79-year-old male with recent cough cold COVID symptoms 12 days ago, decreased appetite since that time, has generalized weakness and fatigue. Denies fevers or chills. Has had some elevation in blood pressure home readings. No focal weakness to face arm or leg. No focal numbness to face arm leg. Denies painful or frequent urination. Denies black or red stools. No recent loose stools. Denies nausea or vomiting. No diaphoresis. Intermittently he has had bilateral upper extremity discomfort. No known coronary artery disease. Related Data Home Medications ?Medication ?Instructions ?Recorded ?Confirmed cholecalciferol (vitamin D3) 25 1,000 unit PO QDAY ##0 05/05/16 07/24/24 mcg (1,000 unit) tablet (Vitamin D3) ginkgo biloba 120 mg tablet 120 mg PO ##0 05/05/16 07/24/24 multivitamin (Multiple Vitamins 1 tab PO QDAY ##0 05/05/16 07/24/24 tablet) omega 2-ocr-gpi-fish oil 1,000 mg 1,000 mg PO ##0 05/05/16 07/24/24 (120 mg-180 mg) capsule (Fish Oil) amlodipine 5 mg tablet 5 mg PO DAILY 04/18/22 07/24/24 losartan 100 mg tablet 100 mg PO DAILY 04/18/22 07/24/24 metoprolol succinate 25 mg 25 mg PO DAILY 04/18/22 07/24/24 tablet,extended release 24 hr rosuvastatin 5 mg tablet 5 mg PO DAILY 04/18/22 07/24/24 Milk Thistle PO 02/13/23 07/24/24 relugolix 120 mg tablet (Orgovyx) 120 mg PO DAILY 12/15/23 07/24/24 fluorouracil 5 % topical cream 1 applic topical BID 03/31/24 07/24/24 valacyclovir 1 gram tablet 1,000 mg PO 3XD 03/31/24 07/24/24 Previous Rx's ?Medication ?Instructions ?Recorded lidocaine HCl 2 % mucosal solution 1 applic mucous membrane BID PRN 02/13/23 (Lidocaine Viscous) pain #100 mL Allergies Allergy/AdvReac Type Severity Reaction Status Date / Time oxycodone (OXYCODONE) Allergy Severe RASH Verified 07/24/24 14:22 azithromycin (From ZITHROMAX) Allergy Mild Rash Verified 07/24/24 14:22 Sulfa (Sulfonamide Allergy Mild Rash Verified 07/24/24 14:22 Antibiotics) (SULFA (SULFONAMIDE ANTIBIOTICS)) Patient History Medical History Granulomatous hepatitis (~1973) Hypertension Concussion Surgical History History of right hip replacement H/O total knee replacement Social History Tobacco: How many years used: 3 alcohol intake: current (3 drinks per day ) substance use type: marijuana and 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 HEAD: Atraumatic. Normocephalic. EYES: Pupils equal round and reactive. Extraocular motions intact. No scleral icterus. No injection or drainage. ENT: Nose without bleeding, purulent drainage. Throat without erythema, tonsillar hypertrophy or exudate. Airway patent. NECK: Trachea midline. Non tender CARDIOVASCULAR: Regular rate and rhythm without murmurs, gallops, or rubs. RESPIRATORY: Clear to auscultation. Breath sounds equal bilaterally. No wheezes, rales, or rhonchi. GASTROINTESTINAL: Abdomen soft, non-tender, nondistended. EXTREMITIES: No edema or joint tenderness. BACK: Nontender without deformity or crepitance. No flank tenderness. NEURO: AOx3. Motor functions grossly nonfocal. SKIN: No rash or erythema of visible areas Initial Vital Signs Initial Vital Signs: Vital Signs Temperature 97.8 F 01/07/25 23:07 Pulse Rate 61 01/07/25 23:07 Respiratory Rate 18 01/07/25 23:07 Blood Pressure 175/82 H 01/07/25 23:07 Pulse Oximetry 97 01/07/25 23:07 Oxygen Delivery Method Room Air 01/07/25 23:07 Course Orders Ordered: ED Orders 01/08/25 00:10 Urinalysis and Microscopic Stat 01/08/25 00:49 XR chest 1V Stat EKG-12 Lead Stat 01/08/25 01:00 Complete Blood Count AUTO DIFF Stat Comprehensive Metabolic Panel Stat Lipase Stat Troponin & CK Cardiac Panel Stat Discontinued Medications Sodium Chloride (Normal Saline 0.9%) 1,000 mls @ 1,000 mls/hr IV BOLUS ONE Stop: 01/08/25 01:47 Last Admin: 01/08/25 01:00 Dose: 1,000 mls/hr Documented By: ANNE Vital Signs Vital signs: Vital Signs - 8 hr 01/07/25 23:07 01/08/25 01:11 01/08/25 01:13 Temperature 97.8 F Pulse Rate 61 55 L Respiratory Rate 18 Blood Pressure 175/82 H Pulse Oximetry 97 96 97 Oxygen Delivery Method Room Air 01/08/25 01:14 Temperature Pulse Rate Respiratory Rate Blood Pressure 163/86 H Pulse Oximetry Oxygen Delivery Method MDM - Recheck/Abnormal Lab/Rx Lab Data Lab results narrative: White blood cell count 4200, hemoglobin 13.8, platelets adequate. Glucose 89. BUN 21 slight increased, with creatinine 0.68 normal. Serum CO2 25 normal, electrolytes normal. Liver functions and lipase normal. Urinalysis negative. COVID swab not repeated since he had COVID illness 12 days ago. 01/08/25 01:00 01/08/25 01:00 Labs: Lab Results 01/08/25 01/08/25 Range/Units 00:10 01:00 WBC 4.2 L (4.5-11.0) X10^3/uL RBC 4.13 L (4.5-5.9) X10^6/uL Hgb 13.8 (13.5-17.5) g/dL Hct 39.9 L (41-53) % MCV 96.6 (80-100) fL MCH 33.5 (26-34) PG MCHC 34.7 (30-36) % RDW 13.5 (11.6-14.8) % Plt Count 170 (150-400) X10^3/uL Neut % (Auto) 61.5 (50-75) % Lymph % (Auto) 24.3 L (25-40) % [place] % (Auto) 12.1 (3-14) % Eos % (Auto) 1.2 L (2-4) % Baso % (Auto) 0.9 (0-2) % Neut # (Auto) 2600 (4014-2119) /uL Lymph # (Auto) 1000 L (2364-5513) /uL [place] # (Auto) 500 (0-900) /uL Eos # (Auto) 100 (0-450) /uL Baso # (Auto) 0 (0-100) /uL Sodium 139 (137-145) mmol/L Potassium 4.4 (3.4-5.1) mmol/L Chloride 106 (98-107) mmol/L Carbon Dioxide 25 (22-32) mmol/L BUN 21 H (9-20) mg/dL Creatinine 0.68 (0.66-1.25) mg/dL Estimated GFR > 60 (>60) mL/min BUN/Creatinine Ratio 30.9 H (6-22) Glucose 89 (70-99) mg/dL Calcium 9.0 (8.4-10.2) mg/dL Total Bilirubin 0.6 (0.2-1.3) mg/dL AST 32 (17-59) IU/L ALT 24 (<50) IU/L Alkaline Phosphatase 66 (38-126) U/L Total Creatine Kinase 47 L (55-170) U/L Troponin I < 0.012 (0.01-0.034) ng/mL Total Protein 7.0 (6.3-8.2) g/dL Albumin 4.1 (3.5-5.0) g/dL Globulin 2.9 (1.7-4.1) g/dL Albumin/Globulin Ratio 1.4 (1.0-2.8) Lipase 128 (23-300) U/L Urine Color Yellow Urine Appearance Clear Urine pH 6.0 (4.5-8.0) Ur Specific [place] 1.010 (1.000-1.035) Urine Protein Negative (Negative) Urine Glucose (UA) Negative (Negative) g/dL Urine Ketones Negative (NEGATIVE) Urine Occult Blood Negative (Negative) Urine Nitrate Negative (Negative) Urine Bilirubin Negative (NEGATIVE) Urine Urobilinogen 0.2 (0.2) E.U./dL Ur Leukocyte Esterase Negative (NEGATIVE) Urine RBC None seen (0-5/HPF) Urine WBC None seen (0-5/HPF) Ur Squamous Epith Cells None seen (0-5/HPF) Urine Bacteria None seen (None) Ur Culture Indicated? Cult not indicated Vol Urine Centrifuged 10ml (spun) Imaging Data Chest x-ray: Radiologist's Impression: [address] [address] XRay Report Signed Patient: Chito Rodas MR#: [id number] : 1945 Acct:[id number] Age/Sex: 79 / M Date of Service: 01/08/25 Loc: ED Accession Number: [id number] Procedure: XR chest 1V Ordering Provider: Claudio Arana MD PROCEDURE: XR CHEST 1V INDICATIONS: chest pain TECHNIQUE: One view of the chest was acquired. COMPARISON: [facility], , XR CHEST 2V, 07/24/2024, 14:52. FINDINGS: Surgical changes and devices: None. Lungs and pleura: Lungs are clear. No pleural effusions or pneumothorax. Mediastinum: Mediastinal contours appear normal. Heart size is normal. Bones and chest wall: No suspicious bony lesions. Overlying soft tissues appear unremarkable. IMPRESSION: No acute cardiopulmonary abnormality is seen. Approved by: Kinsey Mendenhall M.D.,Ph.D. on 01/08/2025 at 1:31 ECG Data Attestation: I personally reviewed and interpreted this ECG as follows: Interpretation: 0110, possible ectopic rhythm, atypical P access, ventricular response rate 55. No obvious ST segment elevation or depression changes. RI 160, QRS 82, QTC 419. [facility] Narrative Medical decision making narrative: 79-year-old male with generalized weakness and fatigue, COVID illness 12 days ago, decreased oral intake since that time. Afebrile, sirs screen negative. No respiratory distress. Lung sounds normal, without retractions or crackles or wheezing. He would like testing to look for sources of fatigue. EKG, chest x-ray, labs pending. Urinalysis requested. IV fluid bolus. EKG without obvious ischemic changes, sinus rhythm. Chest x-ray no acute changes, see radiology report. Lab data: White blood cell count 4200, hemoglobin 13.8, platelets adequate. Glucose 89. BUN 21 slight increased, with creatinine 0.68 normal. Serum CO2 25 normal, electrolytes normal. Liver functions and lipase normal. Urinalysis negative. COVID swab not repeated since he had COVID illness 12 days ago, no acute respiratory symptoms presently. IV fluid bolus given, patient feels better. No significant lab changes for severe dehydration but perhaps had some degree of dehydration, response to IV fluids. Without other specific treatments. Recent COVID illness, could have lung COVID like symptoms. Could have decreased oral intake and mild dehydration. He feels better, wants to go home, discharged home with . Return precautions discussed. Discharge Plan Departure Patient Disposition: Home Clinical Impression: Fatigue, Generalized weakness Activity Restrictions/Additional Instructions: Recent COVID illness 12 days ago, with generalized fatigue. Perhaps eating and drinking and taking less oral intake, possible component of dehydration. Chest x-ray without obvious infiltrates or pneumonia changes. Screening labs also unremarkable. IV fluid bolus given, symptoms improved. It might have been possible you had some mild dehydration. It is also possible to have generalized fatigue as part of long COVID sequelae of your recent illness. Consider recheck with your regular provider in the [facility], though you expressed concern that you were not able to get into the provider clinic there until February 2025. Contact information provided for establishing local primary care provider, as you live in the [facility]. Consider calling for primary care through [facility], . Consider drinking electrolyte solution as needed to stay hydrated. Return earlier to this/nearest emergency department for any change worsening symptoms or any concerns prior. Prescriptions: No Action Milk Thistle PO lidocaine HCl [Lidocaine Viscous] 2 % solution 1 applic mucous membrane BID PRN (Reason: pain) Qty: 100 0RF Orgovyx 120 mg tablet 120 mg PO DAILY valacyclovir 1 gram tablet 1,000 mg PO 3XD fluorouracil 5 % cream 1 applic topical BID multivitamin [Multiple Vitamins] 1 EACH tablet 1 tab PO QDAY Qty: 0 ginkgo biloba 120 MG tablet 120 mg PO Qty: 0 omega 2-iim-vnm-fish oil [Fish Oil] 1,000 MG capsule 1,000 mg PO Qty: 0 cholecalciferol (vitamin D3) [Vitamin D3] 1,000 UNIT tablet 1,000 unit PO QDAY Qty: 0 amlodipine 5 mg tablet 5 mg PO DAILY metoprolol succinate 25 mg tablet extended release 24 hr 25 mg PO DAILY losartan 100 mg tablet 100 mg PO DAILY rosuvastatin 5 mg tablet 5 mg PO DAILY Referrals: Carole Madden DO [Primary Care Provider, Medical] Stand Alone Forms: Patient Portal/API
--- NOTE | 2025-01-08 00:49 | EKG_ITS ---
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
--- NOTE | 2025-01-08 00:49 | DI.RAD.S_ITS ---
PROCEDURE: XR CHEST 1V INDICATIONS: chest pain TECHNIQUE: One view of the chest was acquired. COMPARISON: [facility], CR, XR CHEST 2V, 07/24/2024, 14:52. FINDINGS: Surgical changes and devices: None. Lungs and pleura: Lungs are clear. No pleural effusions or pneumothorax. Mediastinum: Mediastinal contours appear normal. Heart size is normal. Bones and chest wall: No suspicious bony lesions. Overlying soft tissues appear unremarkable. IMPRESSION: No acute cardiopulmonary abnormality is seen. Approved by: Kinsey Mendenhall M.D.,Ph.D. on 01/08/2025 at 1:31
[2025-01-08] MEDS: SODIUM CHLORIDE 0.9% 1,000 ML 1000 ML IV (01:00)
[2025-01-08 01:11] VITALS: O2SAT 96
[2025-01-08 01:13] VITALS: PULSE 55; O2SAT 97
[2025-01-08 01:14] VITALS: BP 163/86
[2025-01-08 01:17] LABS: Add Manual Diff / Slide Review NO; Hematocrit 39.9 % (41-53); Hemoglobin 13.8 g/dL (13.5-17.5); Lymphocytes Absolute Auto 1000 /uL (1100-4500); Mean Corpuscular HGB Conc 34.7 % (30-36); Mean Corpuscular Hemoglobin 33.5 PG (26-34); Mean Corpuscular Volume 96.6 fL (80-100); Platelet Count 170 X10^3/uL (150-400)
[2025-01-08 01:27] LABS: Appearance Urine UA CLEAR; Bilirubin Urine UA NEGATIVE (NEGATIVE); Color Urine UA YELLOW; Glucose Urine UA NEGATIVE (Negative); Ketones Urine UA NEGATIVE (NEGATIVE); Leukocyte Esterase Urine UA NEGATIVE (NEGATIVE); Nitrite Urine UA NEGATIVE (Negative); Occult Blood Urine UA NEGATIVE (Negative); Protein Urine UA NEGATIVE (Negative); Specific Gravity Urine UA 1.010 (1.000-1.035); Urobilinogen Urine UA 0.2 E.U./dL (0.2); pH Urine UA 6.0 (4.5-8.0)
[2025-01-08 01:37] LABS: Culture Indicated Urine Cult Not Indicated
[2025-01-08 01:39] LABS: Alanine Aminotransferase 24 IU/L (<50); Albumin 4.1 g/dL (3.5-5.0); Albumin Globulin Ratio 1.4 (1.0-2.8); Alkaline Phosphatase 66 U/L (38-126); Blood Urea Nitrogen 21 mg/dL (9-20); Calcium 9.0 mg/dL (8.4-10.2); Carbon Dioxide 25 mmol/L (22-32); Chloride 106 mmol/L (98-107); Creatine Kinase 47 U/L (55-170); Estimated Glomerular Filt Rate > 60 mL/min (>60); Globulin 2.9 g/dL (1.7-4.1); Glucose 89 mg/dL (70-99); HEMOLYSIS < 15 (0-50); Lipase 128 U/L (23-300); Potassium 4.4 mmol/L (3.4-5.1); Sodium 139 mmol/L (137-145); Total Protein 7.0 g/dL (6.3-8.2)
[2025-01-08 01:51] LABS: Troponin I < 0.012 ng/mL (0.01-0.034)
== END 2025-01-08 02:09 | disposition home or self-care (01) ==
PROVIDERS: Emergency Provider Emergency Medicine; PCP Family Medicine
DX: R53.1 Weakness (principal); R53.83 Other fatigue; I10 Essential (primary) hypertension; R07.9 Chest pain, unspecified
CPT/HCPCS: 36415; 71045; 80053; 81001; 82550; 83690; 84484; 85025; 93005; 99284